=== PATIENT | female | born 1985 | race Hispanic/Latino ===

== ENCOUNTER 2018-10-07 17:39 | Emergency (ER) | payer SELFPAY ==
--- NOTE | 2018-10-07 18:27 | ER ---
Nurse's Notes [facility] Name: Rashmi Gutierres Age: 33 yrs Sex: Female : 1985 Arrival Date: 10/07/2018 Time: 17:40 Bed 11 Private MD: Diagnosis: Acute frontal sinusitis, unspecified Presentation: 10/07 17:42 Presenting complaint: Patient states: my sinuses seems congested really bad since hj yesterday; reports taking sinux meds but not helping; denies fever and chills; reports R ear pain;. Transition of care: patient was not received from another setting of care. Onset of symptoms was October 07, 2018. Risk Assessment: Do you want to hurt yourself or someone else? Patient reports no desire to harm self or others. Initial Sepsis Screen: Does the patient meet any 2 criteria? No. Patient's initial sepsis screen is negative. Does the patient have a suspected source of infection? No. Patient's initial sepsis screen is negative. Care prior to arrival: None. 17:42 Method Of Arrival: Ambulatory 17:42 Acuity: AVA 4 hj Historical: - Allergies: 17:44 No Known Allergies; hj - PMHx: 17:44 Hypothyroidism; hj - PSHx: 17:44 None; hj - Immunization history:: Adult Immunizations up to date. - Social history:: Smoking status: Patient/guardian denies using tobacco. - Ebola Screening: : No symptoms or risks identified at this time. Screenin:26 Abuse screen: Denies threats or abuse. Denies injuries from another. Nutritional sv screening: No deficits noted. Tuberculosis screening: No symptoms or risk factors identified. Fall Risk None identified. Assessment: 18:25 General: Appears in no apparent distress. uncomfortable, well groomed, well developed, sv Behavior is calm, cooperative, appropriate for age. Pain: Complains of pain in right cheek and left cheek Pain currently is 5 out of 10 on a pain scale. Pain: Pain began 1 day ago. Is continuous. Neuro: Level of Consciousness is awake, alert, obeys commands, Oriented to person, place, time, situation, Moves all extremities. Full function Gait is steady, Speech is normal. Respiratory: Reports sinus pain/congestion Airway is patent Respiratory effort is even, unlabored, Respiratory pattern is regular, symmetrical. EENT: Reports nasal congestion "I feel like it's dripping in the back of my throat.". Derm: Skin is normal. Vital Signs: 17:44 BP 139 / 88; Pulse 104; Resp 18; Temp 99.5(TE); Pulse Ox 97% on R/A; Weight 122.02 kg; hj Height 5 ft. 7 in. (170.18 cm); 17:44 Body Mass Index 42.13 (122.02 kg, 170.18 cm) ED Course: 17:40 Patient arrived in ED. as 17:43 Triage completed. hj 17:45 Arm band placed on right wrist. hj 18:18 Honorio Palumbo MD is Attending Physician. kdr 18:26 Patient has correct armband on for positive identification. Bed in low position. Call sv light in reach. Door closed. Head of bed elevated. 18:34 Leah Mead RN is Primary Nurse. sv 18:35 No provider procedures requiring assistance completed. Patient did not have IV access sv during this emergency room visit. Administered Medications: No medications were administered Outcome: 18:26 Discharge ordered by . kdr 18:35 Discharged to home ambulatory, with family. sv 18:35 Condition: stable 18:35 Discharge instructions given to patient, Instructed on discharge instructions, follow up and referral plans. medication usage, Demonstrated understanding of instructions, follow-up care, medications, Prescriptions given X 2. 18:36 Patient left the ED. sv Signatures: Leah Mead, COOPER RN Honorio Palumbo MD MD [facility] Brisa Jose Henry RN RN Corrections: (The following items were deleted from the chart) 17:45 17:44 Pulse Ox 100%; 122.02 kg; Height 5 ft. 7 in.; BMI: 42.1; hj hj 17:46 17:42 Presenting complaint: Patient states: my sinuses seems congested really bad since hj yesterday; reports taking sinux meds but not helping; denies fever and chills; hj 17:47 17:44 Pulse 104bpm; Resp 18bpm; Pulse Ox 97% RA; Temp 99.5F Temporal; 122.02 kg; Height hj 5 ft. 7 in.; BMI: 42.1; hj 17:47 17:44 Pulse 104bpm; Resp 18bpm; Pulse Ox 97% RA; Temp 99.5F Temporal; 122.02 kg; Height hj 5 ft. 7 in.; BMI: 42.1; hj
--- NOTE | 2018-10-07 18:27 | EDPHYS ---
Physician Documentation [facility] Name: Rashmi Gutierres Age: 33 yrs Sex: Female : 1985 Arrival Date: 10/07/2018 Time: 17:40 Bed 11 Private MD: ED Physician Honorio Palumbo HPI: 10/07 18:28 This 33 yrs old Female presents to ER via Ambulatory with complaints of Sinus kdr Congestion. 18:28 The patient or guardian reports Sinus congestion and post nasal drip. Onset: The kdr symptoms/episode began/occurred gradually, yesterday. Severity of symptoms: At their worst the symptoms were moderate, in the emergency department the symptoms are unchanged. Modifying factors: The symptoms are alleviated by nothing, the symptoms are aggravated by nothing. Associated signs and symptoms: Pertinent positives: rhinorrhea, sore throat, Pertinent negatives: chest pain, diarrhea, ear ache, fever, nausea, vomiting. The patient has experienced similar episodes in the past, multiple times, but today's symptoms are worse. The patient has not recently seen a physician. Historical: - Allergies: 17:44 No Known Allergies; hj - PMHx: 17:44 Hypothyroidism; hj - PSHx: 17:44 None; hj - Immunization history:: Adult Immunizations up to date. - Social history:: Smoking status: Patient/guardian denies using tobacco. - Ebola Screening: : No symptoms or risks identified at this time. ROS: 18:28 Constitutional: Negative for fever, chills, and weight loss, Eyes: Negative for injury, kdr pain, redness, and discharge, Neck: Negative for injury, pain, and swelling, Cardiovascular: Negative for chest pain, palpitations, and edema, Respiratory: Negative for shortness of breath, cough, wheezing, and pleuritic chest pain. 18:28 ENT: Positive for of the right cheek and left cheek, nasal discharge, sinus congestion, sinus pain. Exam: 18:28 Constitutional: This is a well developed, well nourished patient who is awake, alert, kdr and in no acute distress. Eyes: Pupils equal round and reactive to light, extra-ocular motions intact. Lids and lashes normal. Conjunctiva and sclera are non-icteric and not injected. Cornea within normal limits. Periorbital areas with no swelling, redness, or edema. Neck: Trachea midline, no thyromegaly or masses palpated, and no cervical lymphadenopathy. Supple, full range of motion without nuchal rigidity, or vertebral point tenderness. No Meningismus. Chest/axilla: Normal chest wall appearance and motion. Nontender with no deformity. No lesions are appreciated. 18:28 Head/face: Noted is Sinus tenderness, that is mild, is located over the right maxillary sinus and left maxillary sinus. Vital Signs: 17:44 BP 139 / 88; Pulse 104; Resp 18; Temp 99.5(TE); Pulse Ox 97% on R/A; Weight 122.02 kg; hj Height 5 ft. 7 in. (170.18 cm); 17:44 Body Mass Index 42.13 (122.02 kg, 170.18 cm) MDM: 18:26 Patient medically screened. kdr 18:28 Data reviewed: vital signs, nurses notes. Counseling: I had a detailed discussion with kdr the patient and/or guardian regarding: the historical points, exam findings, and any diagnostic results supporting the discharge/admit diagnosis, the need for outpatient follow up. Administered Medications: No medications were administered Disposition: 10/07/18 18:26 Discharged to Home. Impression: Acute frontal sinusitis, unspecified. - Condition is Stable. - Discharge Instructions: Sinusitis, Adult. - Prescriptions for Mucinex DM 30- 600 mg Oral tablet extended release 12 hr - take 1 tablet by ORAL route every 12 hours As needed; 20 tablet. Medrol (Tremaine) 4 mg Oral Tablets, Dose Pack - take 1 tablet by ORAL route as directed - follow package instructions; 1 packet. - Medication Reconciliation Form, Thank You Letter form. - Follow up: Private Physician; When: 2 - 3 days; Reason: If symptoms return, Further diagnostic work-up, Recheck today's complaints, Continuance of care, Re-evaluation by your physician. - Problem is an acute exacerbation. - Symptoms have improved. Signatures: Leah Mead RN RN Honorio Fraser MD MD kdr Joaquin, Henry, RN RN Corrections: (The following items were deleted from the chart) 18:36 18:26 10/07/2018 18:26 Discharged to Home. Impression: Acute frontal sinusitis, sv unspecified. Condition is Stable. Forms are Medication Reconciliation Form, Thank You Letter, Antibiotic Education, Prescription Opioid Use. Follow up: Private Physician; When: 2 - 3 days; Reason: If symptoms return, Further diagnostic work-up, Recheck today's complaints, Continuance of care, Re-evaluation by your physician. Problem is an acute exacerbation. Symptoms have improved. kdr
== END 2018-10-07 18:36 | disposition home or self-care (01) ==
LOC: ER 17:39
DX: J01.10 Acute frontal sinusitis, unspecified (principal); E03.9 Hypothyroidism, unspecified
CPT/HCPCS: 99282

== ENCOUNTER 2023-03-06 12:34 | Emergency (ER) | payer SELFPAY ==
--- OUTSIDE RECORDS SUMMARY | 2023-03-06 12:37 | XMS REPORT | Continuity of Care Document ---
:1985 Author Organization [facility] t Address [address] [facility] [address] [facility] [address] [place] [address] Care Team Providers Name Role Phone TOMÁS JACKSON Primary Care Physician Unavailable LEI GOMEZ Attending Clinician Unavailable Pgy2 Attending Clinician Unavailable Nubia Thomas MD Attending Clinician HEIDY MCGARRY Attending Clinician Unavailable HEIDY MCGARRY Attending Clinician Unavailable Pcp, Patient Does Not Have A Attending Clinician [phone] JENNIE TIMMONS Attending Clinician Unavailable Jennie Timmons MD Attending Clinician Only, Ang Db Test Attending Clinician Unavailable Farooq Del Toro MD Attending Clinician FAROOQ DEL TORO III Attending Clinician Unavailable RANGEL GALDAMEZ Attending Clinician Unavailable Rangel Galdamez MD Attending Clinician Doctor Unassigned, [place] Attending Clinician Unavailable JENNIE TIMMONS Admitting Clinician Unavailable Payers Payer Name Policy Type Policy Number Effective Date Expiration Date Ed whitley [id number] 2022 00:00:00 Problems Condition Condition Condition Status Onset Resolution Last Treating Co mments Source Name Details Category Date Date Treatment Clinician Date Right Right Disease Active Univers lower lower 5-07 ity of quadrant quadrant 00:00: [place] abdominal abdominal 00 Medi [place] pain pain Branch 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 ICD10 Diagnosis Term [employer] Hypothyroi Hypothyroi Disease Active U nivers d d 09-10 ity of 00:00: [address] Branch Allergies, Adverse Reactions, Alerts Allergy Allergy Status Severity Reaction(s) Onset Inactive Treating Comm ents Source Name Type Date Date Clinician NO KNOWN Drug Active [facility] ALLERGIE Class ity of [facility] [place] [place] Social History Social Habit Start Date Stop Date Quantity Comments Source Alcohol intake 2022-12-10 2022-12-10 Current [place] of 00:00:00 00:00:00 non-drinker of [facility] alcohol Branch (finding) Exposure to 2022-11-28 2022-12-08 Not sure [facility] SARS-CoV-2 00:00:00 11:30:00 [facility] (event) Branch Sex Ass[birth year] At [birth year] Universit y of 00:00:00 00:00:00 [facility] Smoking Status Start Date Stop Date Source Never smoked tobacco [facility] Medications Ordered Filled Start Stop Current Ordering Indication Dosage Frequency Signature Comments Components Source Medication Medication Date Date Medication? Clinician (SIG) Name Name iopamidol 2022- No [id number] 100mL 100 mL, Univers (ISOVUE 11-08 Intravenou ity o f 370-500 mL) 23:30: 00:22 s, ONCE, 1 [place] injection 00 :00 dose, On Medica l 100 mL [place] 11/08/22 Branch at 1830, Routine NaCl 0.9% 2022- No 1000mL at 999 Uni vers (NS) bolus 11-08 mL/hr, ity of infusion 22:45: 02:00 1,000 mL, [place] as 1,000 mL 00 :00 IV Medical Infusion, Branch ONCE, 1 dose, On 11/08/22 at 1745, STAT maalox:diph 2022- No 15mL 15 mL, Uni vers enhydrAMINE 11-08 Oral, ity of :lidocaine 22:45: 23:59 ONCE, 1 [place] as 2 % viscous 00 :00 dose, On Medi venessa 1:1:1 11/08/22 Branch (FIRST-MOUT at 1745, [facility]) Routine oral suspension 15 mL Nitrofurant No [id number] 100mg Take 1 Univers oin&Nit. 11-0815 capsule by ity of [place] 00:00: 04:59 mouth in [place] 100 mg 00 :00 the Medical capsule morning Branch and 1 capsule in the evening. Do all this for 7 days. acetaminoph 2022- No [id number] 1{tbl} Take 1 U nivers en-codeine 11-08 tablet by ity of (TYLENOL-CO 00:00: 04:59 [place] DEINE #3) 00 :00 every 6 Medical 300-30 mg (six) Branch tablet hours as needed for Pain (scale 4-6) for up to 5 days. Indication s: acute pain ondansetron No [id number] 4mg Take 1 Univers 4 mg 11-08 tablet by ity of disintegrat 00:00: 04:59 [place] ing tablet 00 :00 every 8 Medica l (eight) Branch hours as needed for Nausea and Vomiting (N/V) for up to 5 days. atorvastati 2020-07 Yes 20mg Take 20 mg Univers n (LIPITOR) 1-24 by mouth ity of 20 mg 14:48: at [place] tablet 01 bedtime. Medical Branch ergocalcife 2020-07 Yes [id number] Take Uni vers rol, 1-24 50,000 mg ity of vitamin D2, 14:48: by mouth [place] (VITAMIN D 01 weekly. Medica l ORAL) Branch metFORMIN 2020-07 Yes 500mg Take 500 Uni vers 500 mg 24 1-24 mg by ity of hr tablet 14:48: mouth 2 [place] 01 (two) Medical times Branch daily with meals. levothyroxi 2020-07 Yes 125ug Take 125 U nivers ne 1-24 mcg by ity of (UNITHROID) 14:48: mouth [place] 125 mcg 01 every Medical tablet morning. Branch atorvastati 2020-07 Yes 20mg Take 20 mg Univers n (LIPITOR) 1-24 by mouth ity of 20 mg 14:48: at [place] tablet 01 bedtime. Medical Branch ergocalcife 2020-07 Yes [id number] Take Uni vers rol, 1-24 50,000 mg ity of vitamin D2, 14:48: by mouth [place] (VITAMIN D weekly. Medica l ORAL) Branch metFORMIN 2020-07 Yes 500mg Take 500 Uni vers 500 mg 24 1-24 mg by ity of hr tablet 14:48: mouth 2 (two) Medical times Branch daily with meals. levothyroxi 2020-07 Yes 125ug Take 125 U nivers ne 1-24 mcg by ity of (UNITHROID) 14:48: mouth [place] 125 mcg 01 every Medical tablet morning. Branch atorvastati 2020-07 Yes 20mg Take 20 mg Univers n (LIPITOR) 1-24 by mouth ity of 20 mg 14:48: at [place] tablet 01 bedtime. Medical Branch ergocalcife 2020-07 Yes [id number] Take Uni vers rol, 1-24 50,000 mg ity of vitamin D2, 14:48: by mouth [place] (VITAMIN D weekly. Medica l ORAL) Branch metFORMIN 2020-07 Yes 500mg Take 500 Uni vers 500 mg 24 1-24 mg by ity of hr tablet 14:48: mouth (two) Medical times Branch daily with meals. levothyroxi 2020-07 Yes 125ug Take 125 U nivers ne 1-24 mcg by ity of (UNITHROID) 14:48: mouth [place] 125 mcg 01 every Medical tablet morning. Branch atorvastati 2020-07 Yes 20mg Take 20 mg Univers n (LIPITOR) 1-24 by mouth ity of 20 mg 14:48: at [place] tablet 01 bedtime. Medical Branch ergocalcife 2020-07 Yes [id number] Take Uni vers rol, 1-24 50,000 mg ity of vitamin D2, 14:48: by mouth [place] (VITAMIN D weekly. Medica l ORAL) Branch metFORMIN 2020-07 Yes 500mg Take 500 Uni vers 500 mg 24 1-24 mg by ity of hr tablet 14:48: mouth 2 (two) Medical times Branch daily with meals. levothyroxi 2020-07 Yes 125ug Take 125 U nivers ne 1-24 mcg by ity of (UNITHROID) 14:48: mouth [place] 125 mcg 01 every Medical tablet morning. Branch atorvastati 2020-07 Yes 20mg Take 20 mg Univers n (LIPITOR) 1-24 by mouth ity of 20 mg 14:48: at [place] tablet 01 bedtime. Medical Branch ergocalcife 2020-07 Yes [id number] Take Uni vers rol, 1-24 50,000 mg ity of vitamin D2, 14:48: by mouth [place] (VITAMIN D weekly. Medica l ORAL) Branch metFORMIN 2020-07 Yes 500mg Take 500 Uni vers 500 mg 24 1-24 mg by ity of hr tablet 14:48: mouth 2 (two) Medical times Branch daily with meals. levothyroxi 2020-07 Yes 125ug Take 125 U nivers ne 1-24 mcg by ity of (UNITHROID) 14:48: mouth [place] 125 mcg 01 every Medical tablet morning. Branch atorvastati 2020-07 Yes 20mg Take 20 mg Univers n (LIPITOR) 1-24 by mouth ity of 20 mg 14:48: at [place] tablet 01 bedtime. Medical Branch ergocalcife 2020-07 Yes [id number] Take Uni vers rol, 1-24 50,000 mg ity of vitamin D2, 14:48: by mouth [place] (VITAMIN D weekly. Medica l ORAL) Branch metFORMIN 2020-07 Yes 500mg Take 500 Uni vers 500 mg 24 1-24 mg by ity of hr tablet 14:48: mouth 2 (two) Medical times Branch daily with meals. levothyroxi 2020-07 Yes 125ug Take 125 U nivers ne 1-24 mcg by ity of (UNITHROID) 14:48: mouth [place] 125 mcg 01 every Medical tablet morning. Branch atorvastati 2020-07 Yes 20mg Take 20 mg Univers n (LIPITOR) 1-24 by mouth ity of 20 mg 14:48: at [place] tablet 01 bedtime. Medical Branch ergocalcife 2020-07 Yes [id number] Take Uni vers rol, 1-24 50,000 mg ity of vitamin D2, 14:48: by mouth [place] (VITAMIN D weekly. Medica l ORAL) Branch metFORMIN 2020-07 Yes 500mg Take 500 Uni vers 500 mg 24 1-24 mg by ity of hr tablet 14:48: mouth 2 [place] 01 (two) Medical times Branch daily with meals. levothyroxi 2020-07 Yes 125ug Take 125 U nivers ne 1-24 mcg by ity of (UNITHROID) 14:48: mouth [place] 125 mcg 01 every Medical tablet morning. Branch levothyroxi 2020-07- No 100ug Take 100 Univers ne 1-24 11-24 mcg by ity of (SYNTHROID) 14:46: 00:00 [place] 100 mcg 12 :00 every Medical tablet morning. Branch Immunizations Ordered Filled Immunization Date Status Comments [facility] e Immunization Name Name TDAP 2013-04-26 Completed University of 00:00:00 [facility] TDAP 2013-04-26 Completed University of 00:00:00 [facility] TDAP 2013-04-26 Completed University of 00:00:00 [facility] TDAP 2013-04-26 Completed University of 00:00:00 [facility] TDAP 2013-04-26 Completed University of 00:00:00 [facility] TDAP 2013-04-26 Completed University of 00:00:00 [facility] TDAP 2013-04-26 Completed University of 00:00:00 [facility] Rubella 2007-04-12 Completed University of 00:00:00 [facility] Rubella 2007-04-12 Completed University of 00:00:00 [facility] Rubella 2007-04-12 Completed University of 00:00:00 [facility] Rubella 2007-04-12 Completed University of 00:00:00 [facility] Rubella 2007-04-12 Completed University of 00:00:00 [facility] Rubella 2007-04-12 Completed University of 00:00:00 [facility] Rubella 2007-04-12 Completed University of 00:00:00 [facility] TD, NOS 2003-02-24 Completed University of 00:00:00 [facility] TD, NOS 2003-02-24 Completed University of 00:00:00 [facility] Branch TD, NOS 2003-02-24 Completed University of 00:00:00 [facility] Branch TD, NOS 2003-02-24 Completed University of 00:00:00 [facility] Branch TD, NOS 2003-02-24 Completed University of 00:00:00 [facility] Td 2003-02-24 Completed University of 00:00:00 [facility] Td 2003-02-24 Completed University of 00:00:00 [facility] Vital Signs Vital Name Observation Time Observation Value Comments Source Systolic blood 2022-12-10 14:20:00 142 mm[Hg] Univer sity of pressure [facility] Diastolic blood 2022-12-10 14:20:00 97 mm[Hg] Unive rsity of pressure [facility] Heart rate 2022-12-10 14:20:00 77 /min Universi ty of [facility] Body temperature 2022-12-10 14:20:[address] [place] Univ ersity of [facility] Branch Respiratory rate 2022-12-10 14:20:00 20 /min Univ ersity of [facility] Body height 2022-12-10 14:20:00 170.2 cm Universi ty of [place] [facility] [place] Body weight 2022-12-10 14:20:00 126.599 kg [facility]i ty [facility] [place] [facility] [place] BMI 2022-12-10 14:20:00 43.71 kg/m2 Universi ty of [facility] Systolic blood 2022-11-09 04:00:00 144 mm[Hg] Univer sity of pressure [facility] Diastolic blood 2022-11-09 04:00:00 106 mm[Hg] Unive rsity of pressure [facility] Heart rate 2022-11-09 04:00:00 75 /min Universi ty of [facility] Respiratory rate 2022-11-09 04:00:00 18 /min [facility] Oxygen saturation in 2022-11-09 04:00:00 98 /min [facility] Arterial blood by [facility] Pulse oximetry Branch Body temperature 2022-11-08 22:08:[address] [place] Univ ersity of [facility] Body height 2022-11-08 22:08:00 170.2 cm Universi ty [facility] [place] [facility] [place] Body weight 2022-11-08 22:08:00 122.471 kg [facility] [place] [facility] BMI 2022-11-08 22:08:00 42.29 kg/m2 Universi ty of [facility] Systolic blood 2021-05-28 20:52:00 133 mm[Hg] Univer sity of pressure [place] [facility] Diastolic blood 2021-05-28 20:52:00 90 mm[Hg] [facility] Heart rate 2021-05-28 20:52:00 99 /min [facility] Respiratory rate 2021-05-28 20:50:00 22 /min [facility] Body height 2021-05-28 20:50:00 170.2 cm [facility] Body weight 2021-05-28 20:50:00 122.653 kg [facility] BMI 2021-05-28 20:50:00 42.35 kg/m2 [facility] Oxygen saturation in 2021-05-28 20:50:00 93 /min [facility] Arterial blood by [facility] Pulse oximetry Branch Procedures Procedure Date / Time Performing Clinician Source Performed CARCINOEMBRYONIC ANTIGEN 2022-12-10 15:21:00 Mishel Montes De Oca [facility] CA-125 2022-12-10 15:21:00 Mishel Montes De Oca [place] o f [facility] US OVARY TORSION 2022-11-09 03:21:38 Jennie Timmons [facility] CT ABDOMEN PELVIS W 2022-11-09 00:19:44 Jennie Timmons [facility] CONTRAST [facility] LIPASE 2022-11-08 23:55:00 Jennie Timmons [facility] COMP. METABOLIC PANEL 2022-11-08 23:55:00 Jennie Timmons [facility] ([id number]) [facility] CBC WITH DIFF 2022-11-08 23:55:00 Jennie Timmons [facility] URINALYSIS 2022-11-08 23:55:00 Jennie Timmons [facility] POCT TEST 2022-11-08 23:55:00 Jennie Timmons [facility] CONSENT/REFUSAL FOR 2022-11-08 22:02:23 Doctor Unassigned, [facility] DIAGNOSIS AND TREATMENT [place] [facility] [place] Encounters Start End Encounter Admission Attending Care Care Encounter Source Date/Time Date/Time Type Type Clinicians Facility Department ID 2023-02-11 2023-02-11 Outpatient SFA [facility] [id number] [place] 16:07:11 16:07:11 0810 [place] 2022-12-29 2022-12-29 Outpatient [facility] [id number] Jos[place] 17:37:41 17:37:41 [id number] [place] 2022-12-24 2022-12-24 Outpatient [facility] [id number] Jos[place] 13:58:32 13:58:32 0622 [place] 2022-12-10 2022-12-10 [facility] [id number] Univers 10:00:00 10:25:00 [facility] 2022-12-10 2022-12-10 Out[facility] [id number] Univers 10:00:00 10:00:00 [facility] 2022-12-10 2022-12-10 Office Pgy2 UNIVERSIT [id number] Univers 09:30:00 09:49:12 Visit Nubia Thomas Y HEALTH 350.1.13.10 ity of [facility] 4.2.7.2.686 [place] [phone] [address] 2022-11-12 2022-11-12 Outpatient R HEIDY MCGARRY [facility] U TMB [id number] Univers 14:15:00 14:15:00 HEIDY MCGARRY [facility] 2022-11-11 2022-11-11 Telephone Pcp, UNIVERSIT [id number] Univers 00:00:00 00:00:00 Patient Y HEALTH 350.1.13.10 i ty of Does Not CLINICS 4.2.7.2.686 [place] as Have A [id number] [address] 2022-11-08 2022-11-08 Emergency X SHANELLE [facility] ERT [id number] Univers 17:10:00 23:24:00 [facility]22-[facility]08 2022-11-08 [facility] [id number] Univers 17:10:00 23:24:00 Jennie A [place] 350.1.13.10 [facility] 4.2.7.2.686 [place] [phone] Medi venessa 084 Branch 2022-11-04 2022-11-04 Outpatient [facility] [id number] Jos[place] 10:39:22 10:39:22 0503 [place] 2022-08-08 2022-08-08 Outpatient [facility] [id number] Jos[place] 10:16:44 10:16:44 0204 [place] 2022-04-03 2022-04-03 Outpatient [facility] [id number] Joselo 11:11:22 11:11:22 0930 [place] 2021-07-09 2021-07-09 Laboratory Only, Ang Db Test [facility] 1.2.8 [id number] Univers 14:30:00 14:45:00 Only Farooq Del Toro 350.1.13.10 ity of [place] 4.2.7.2.686 [place] as JASON?BLEA [phone] Wy dicmayte [address] MEDICAL OFFICE BUILDING 2021-07-09 2021-07-09 Outpatient R III, [facility] [id number] Univers 14:30:00 14:30:00 FAROOQ ity [facility] 2021-05-28 2021-05-28 Outpatient [facility] [id number] Univers 14:40:00 15:03:10 RANGEL canela o [facility] 2021-05-28 2021-05-28 [facility] [id number] Univers 14:28:00 15:03:10 Visit Rangel JOHNSON 350.1.13.10 ity of [place] 4[place]2.7.2.686 [place] [facility] [id number] Wy dical SAKINA 059 Branch BUILDING 2021-05-28 2021-05-28 Orders Doctor MARY [id number] Univers 00:00:00 00:00:00 Only Unassigned, MARLENA 350.1.13.10 ity of [place] [facility] 4.2.7.2.686 Carl as [id number] [facility] venessa [address] [place] Results Test Description Test Time Test Comments Results Result Comments Source VAGINAL PATHOGENS DNA PANEL 2023-02-12 15:33:06 Test Item Value Reference Range Interpretation Comme nts JOSIE SPECIES (test code POSITIVE NEGATIVE A = ) G. VAGINALIS (test code = NEGATIVE NEGATIVE ) T. VAGINALIS (test code = NEGATIVE NEGATIVE N ote: The BD Affirm VPIII Microbial ) Identification Testis a DNA probe test intended for us e in the detectionand identification of Josie species, Gardnerellavagi nalis and Trichomonas vaginalis nucle ic acid. UNLESS OTHERWISE INDIC ATED, ALL TESTING PERFORMED AT [facility] PATHOLOGY [facility]. [address] [place] [address] [phone] CAUL FAT PULLER: Finn SADLERIA NUMBER [id number] [place]. [id number] TSH, THIRD [id number] 06:44:18 Test Item Value Reference Range Interpretation Comments TSH, THIRD GENERATION (test 10.200 UIU/ML 0.400-4.100 H code = 2821) FREE T4 (THYROXINE)2022-12-25 06:44:18 Test Item Value Reference Range Interpretation Comments FREE T4 (THYROXINE) (test code = 0.99 NG/DL 0.80-1.90 1743) HEMOGLOBIN [id number] 03:24:33 Test Item Value Reference Range Interpretation Comments HEMOGLOBIN A1c (test 7.0 % 4.2-5.6 H AMERIC AN DIABETES code = 08247) ASSOCIATION IDELINES FOR HGB A1C: PREDIABETES/INC REASED RISK . . . . . . . 5.7 -6.4% DIAGNOSIS OF DI ABETES . . . . . . . . . >=6 .5% WITH CONFIRMATION OR APPROPRIATE SYMPTOMS NOTE: ASSAY MAY BE AFFECTED BY HEMOGLOBINOPATH IES (SICKLE CELL ANEMIA, S- C DISEASE, OTHERS) OR NICOLÁS FICIALLY LOWERED BY DECR EASED RED CELL SURVIVAL ( HEMOLYTIC ANEMIAS, BLOOD LOSS, ETC.). CONSIDER ALTERN ATE TESTING OR LABORATORY C ONSULTATION. UNLESS OTHERWIS E INDICATED, ALL TESTING PER FORMED AT CLINICAL PATHOL OGY [facility]. [address] [place] [address] [phone] LABORATORY DIRE CTOR: Finn SADLERIA NUMBER [id number] CAP ACCREDITATION N O. [id number] COMP. METABOLIC PANEL (36466)2022-11-09 01:05:46 Test Item Value Reference Range Interpretation Comments NA (test code = 136 mmol/L 135-145 6145699992) K (test code = 3.9 mmol/L 3.5-5.0 0808662804) CL (test code = 103 mmol/L 98-108 6154734425) CO2 TOTAL (test code = 23 mmol/L 23-31 0244089079) AGAP (test code = 10 2-16 8679962207) BUN (test code = 8 mg/dL 7-23 7167646393) GLUCOSE (test code = 101 mg/dL 70-110 6419188526) CREATININE (test code = 0.48 mg/dL 0.50-1.04 L 6866309595) TOTAL BILI (test code = 0.8 mg/dL 0.1-1.7 8069134989) CALCIUM (test code = 9.1 mg/dL 8.6-10.6 5330518194) T PROTEIN (test code = 7.9 g/dL 6.3-8.2 6797179462) ALBUMIN (test code = 4.5 g/dL 3.5-5.0 3875736363) ALK PHOS (test code = 87 U/L 34-122 7271496120) ALTv (test code = 80 U/L 5-35 H 1742-6) AST(SGOT) (test code = 77 U/L 13-40 H 4899646607) eGFR (test code = 144.7 mL/min/1.73m2 7207060717) ANTOINE (test code = ANTOINE) Association of Glomerular Filtration Rate (GFR) and Staging of Kidney Disease* + --+ --+ ------+| GFR (mL/min/1.73 m2) ?| With Kidney Damage ?| ?Without Kidney Damage+ --------+ --------+ +| ?>90 ?| ?Stage one ?| ? Normal ?+ ---+ ---+ -------+| ?60-89 ?| ?Stage two ?| ? Decreased GFR ? + --+ --+ ------+| ?30-59 ?| ?Stage three ?| ? Stage three ? + --+ --+ ------+| ?15-29 ?| ?Stage four ? | ? Stage four ?+ ---+ ---+ -------+| ?<15 (or dialysis) ? ?| ?Stage five ? | ? Stage five ?+ ---+ ---+ -------+ *Each stage assumes the associated GFR level has been in effect for at least three months. ?Stages 1 to 5, with or without kidney disease, indicate chronic kidney disease. Notes: Determination of stages one and two (with eGFR >59mL/min/1.73 m2) requires estimation of kidney damage for at least three months as defined by structural or functional abnormalities of the kidney, manifested by either:Pathological abnormalities or Markers of kidney damage (including abnormalities in the composition of the blood or urine or abnormalities in imaging tests). Lab Interpretation Abnormal (test code = 06724-3) [facility] Test Item Value Reference Range Interpretation Comments LIPASE (test code = 7275999041) 127 U/L 0-220 Lab Interpretation (test code = Normal 36319-2) [facility] WITH [id number] 01:00:47 Test Item Value Reference Range Interpretation Comments WBC (test code = 9.53 See_Comment [Automated 3690-2) message] The sy stem which generated this result transmitted reference range : 4.30 - 11.10 10*3/?L. The reference range was not used to interpret this result as normal/abnormal . RBC (test code = 4.47 See_Comment [Automated 959-8) message] The sy stem which generated this result transmitted reference range : 3.93 - 5.25 10*6/?L. The reference range was not used to interpret this result as normal/abnormal . HGB (test code = 13.3 g/dL 11.6-15.0 718-7) HCT (test code = 37.8 % 35.7-45.2 4544-3) MCV (test code = 84.6 fL 80.6-95.5 787-2) MCH (test code = 29.8 pg 25.9-32.8 785-6) MCHC (test code = 35.2 g/dL 31.6-35.1 H 786-4) RDW-SD (test code = 41.7 fL 39.0-49.9 14649-2) RDW-CV (test code = 13.6 % 12.0-15.5 788-0) PLT (test code = 305 See_Comment [Automated 777-3) message] The sy stem which generated this result transmitted reference range : 166 - 358 10*3/ ?L. The reference r denise was not used to interpret this result as normal/abnormal . MPV (test code = 10.2 fL 9.5-12.9 02784-8) NRBC/100 WBC (test 0.0 See_Comment [Automat ed code = [id number]) message] The system which generated this result transmitted reference range : 0.0 - 10.0 /100 WBCs. The refer ence range was not u sed to interpret th is result as normal/abnormal . NRBC x10^3 (test code See_Comment [Auto mated = 8175612840) message] The s ystem which generated this result transmitted reference range : 10*3/?L. The reference range was not used to interpret this result as normal/abnormal . GRAN MAT (NEUT) % 68.5 % (test code = 770-8) IMM GRAN % (test code 0.70 % = 2564847878) LYMPH % (test code = 20.3 % 736-9) MONO % (test code = 7.0 % 5905-5) EOS % (test code = 3.0 % 713-8) BASO % (test code = 0.5 % 706-2) GRAN MAT x10^3(ANC) 6.52 10*3/uL 1.88-7.09 (test code = 7185351356) IMM GRAN x10^3 (test 0.07 10*3/uL 0.00-0.06 H code = 3694756892) LYMPH x10^3 (test code 1.93 10*3/uL 1.32-3.29 = 731-0) MONO x10^3 (test code 0.67 10*3/uL 0.33-0.92 = 742-7) EOS x10^3 (test code = 0.29 10*3/uL 0.03-0.39 711-2) BASO x10^3 (test code 0.05 10*3/uL 0.01-0.07 = 704-7) Lab Interpretation Abnormal (test code = 84339-0) [facility] [id number] 23:55:00 Test Item Value Reference Range Interpretation Comments POCT PREG (test code = 1605) negative On board controls acceptable with present C Line (test code = 3574) POCT PREG LOT # (test code = 3575) [id number] POCT PREG TEST DATE (test 08/04/2023 code = 3576) Lab Interpretation (test code = Normal 87469-4) [facility] [id number] 06:14:26 Test Item Value Reference Range Interpretation Comments GLUCOSE (test code = 110 MG/DL 70-99 H 2216) BUN (test code = 8 MG/DL 6-20 2207) CREATININE (test 0.63 MG/DL 0.60-1.30 code = 221) eGFR (2020 CKD-EPI) 116 >60 (test code = 26409) ML/MIN/1.73 CALC BUN/CREAT (test 13 RATIO 6-28 code = 2235) SODIUM (test code = 140 MEQ/L 556-539 1357) POTASSIUM (test code 4.2 MEQ/L 3.5-5.4 = 2227) CHLORIDE (test code 105 MEQ/L 95-107 = 2214) CARBON DIOXIDE (test 17 MEQ/L 19-31 L code = 2206) CALCIUM (test code = 9.4 MG/DL 8.5-10.5 2208) PROTEIN, TOTAL (test 7.3 G/DL 6.1-8.3 code = 2229) ALBUMIN (test code = 4.3 G/DL 3.5-5.2 2200) CALC GLOBULIN (test 3.0 G/DL 1.9-3.7 code = 2240) CALC A/G RATIO (test 1.4 RATIO 1.0-2.6 code = 2234) BILIRUBIN, TOTAL 0.5 MG/DL See_Comment [Automated message] (test code = 2207) The syste m which generated this result transmit milad reference range : <=1.2. The refe rence range was not u sed to interpret th is result as normal/abnormal . ALKALINE PHOSPHATASE 86 U/L 40-112 (test code = 2204) AST (test code = 50 U/L 9-40 H 2217) ALT (test code = 53 U/L 5-40 H 2218) LIPID [id number] 06:14:26 Test Item Value Reference Range Interpretation Comments CHOLESTEROL (test 201 MG/DL <200 H code = 2210) TRIGLYCERIDES (test 117 MG/DL <150 code = 2232) HDL CHOLESTEROL (test 46 MG/DL >39 code = 2220) CALC LDL CHOL (test 133 MG/DL <100 H NOTE: C ALCULATED LDL code = 2237) IS BASED ON DEBO-DIANA METHOD WHICHINCLUDES ADJUSTABLE TRIGLYCERIDE:VL DL CHOLESTEROL RAT IO.THIS FACTOR VARIES B Y MEASURED TRIGLY CERIDE AND NON-HDLCHOL ESTEROL CONCENTRATIONS WITH INCREASED CALCU LATED LDL SEENIN HIGH ER TRIGLYCERIDE OR LOWER NON-HDL SPECIME NS. FOR MOREINFORMATION , SEE CLIENT ANNOUNCE MENT AT [email or web address] [email or web address] RATIO LDL/HDL 2.89 RATIO <3.22 (test code = 2238) TSH REFLEX TO FREE [id number] 02:37:33 Test Item Value Reference Range Interpretation Comments TSH REFLEX TO FREE 2.580 UIU/ML 0.400-4.100 [facility] has important T4 (test code = pathology st aff 2834) changes effecti ve 09/02/2022. New pathology staff will provide uninter rupted, excellent patie nt care and clinical consultation. S ee URL: [email or web address] UNLES S OTHERWISE INDIC ATED, ALL TESTING PER FORMED AT [facility] [place] [facility]. [address], [place] CLIA: [id number], CAP: [id number] HEMOGLOBIN [id number] 02:52:20 Test Item Value Reference Range Interpretation Comments HEMOGLOBIN A1c (test 6.5 % 4.2-5.6 H AMERIC AN DIABETES code = 17168) ASSOCIATION IDELINES FOR HGB A1C: PREDIABETES/INC REASED RISK . . . . . . . 5.7 -6.4% DIAGNOSIS OF DI ABETES . . . . . . . . . >=6 .5% WITH CONFIRMATION OR APPROPRIATE SYMPTOMS NOTE: ASSAY MAY BE AFFECTED BY HEMOGLOBINOPATH IES (SICKLE CELL ANEMIA, S- C DISEASE, OTHERS) OR NICOLÁS FICIALLY LOWERED BY DECR EASED RED CELL SURVIVAL ( HEMOLYTIC ANEMIAS, BLOOD LOSS, ETC.). CONSIDER ALTERN ATE TESTING OR LABORATORY C ONSULTATION. HEMOGLOBIN [id number] 05:30:41 Test Item Value Reference Range Interpretation Comments HEMOGLOBIN A1c (test code = 40015) 6.0 % 4.2-5.6 H VITAMIN D, 25 [id number] 04:30:04 Test Item Value Reference Range Interpretation Comments VITAMIN D, 25 OH 26 NG/ML SEE BELOW L NOTE: 25-H YDROXYVITAMIN D (test code = 4958) ASSAY INC LUDES 25-HYDROXYVITAM IN D2 AND D3. METHODOLOGY IS CHEMILUMINESCEN T IMMUNOASSAY. INTERPRETIVE RA NGES PEDIATRIC (<17 YEARS) . . . . . . . . . . . NG/ML 20-100ADULT: IN SUFFICIENT . . . . . . . . . . . . . . NG/ML <20 SUBOP TIMAL . . . . . . . . . . . . . . . NG/ML 20-29 OPT IMAL . . . . . . . . . . . . . . . . . NG/ML 30-100 UN LESS OTHERWISE INDIC ATED, ALL TESTING PERFORM ED ATCLINICAL PATH [facility]. [address] [place] [address] LABORATORY DIRE CTOR: Benjamin AHUMADA. CLIA NUMBER [id number] CAP ACCREDITATION N O. [id number] LIPID [id number] 04:16:43 Test Item Value Reference Range Interpretation Comments CHOLESTEROL (test 185 MG/DL <200 code = 2210) TRIGLYCERIDES (test 157 MG/DL <150 H code = 2232) HDL CHOLESTEROL (test 45 MG/DL >39 code = 2220) CALC LDL CHOL (test 113 MG/DL <100 H NOTE: C ALCULATED LDL code = 2237) IS BASED ON DEBO-DIANA METHOD WHICHINCLUDES ADJUSTABLE TRIGLYCERIDE:VL DL CHOLESTEROL RAT IO.THIS FACTOR VARIES B Y MEASURED TRIGLY CERIDE AND NON-HDLCHOL ESTEROL CONCENTRATIONS WITH INCREASED CALCU LATED LDL SEENIN HIGH ER TRIGLYCERIDE OR LOWER NON-HDL SPECIME NS. FOR MOREINFORMATION , SEE CLIENT ANNOUNCE MENT AT [email or web address] RATIO LDL/HDL 2.51 RATIO <3.22 (test code = 2238) COMPREHENSIVE METABOLIC [id number] 04:16:43 Test Item Value Reference Range Interpretation Comments GLUCOSE (test code = 98 MG/DL 70-99 2216) BUN (test code = 9 MG/DL 6-20 2207) CREATININE (test 0.62 MG/DL 0.60-1.30 code = 2214) eGFR (2020 CKD-EPI) 118 >60 (test code = 75525) ML/MIN/1.73 CALC BUN/CREAT (test 15 RATIO 6-28 code = 2235) SODIUM (test code = 141 MEQ/L 278-173 5669) POTASSIUM (test code 4.1 MEQ/L 3.5-5.4 = 2227) CHLORIDE (test code 104 MEQ/L 95-107 = 2214) CARBON DIOXIDE (test 23 MEQ/L 19-31 code = 220) CALCIUM (test code = 9.4 MG/DL 8.5-10.5 2208) PROTEIN, TOTAL (test 7.8 G/DL 6.1-8.3 code = 222) ALBUMIN (test code = 4.4 G/DL 3.5-5.2 2200) CALC GLOBULIN (test 3.4 G/DL 1.9-3.7 code = 2240) CALC A/G RATIO (test 1.3 RATIO 1.0-2.6 code = 2234) BILIRUBIN, TOTAL 0.5 MG/DL See_Comment [Automated message] (test code = 2207) The syste m which generated this result transmit milad reference range : <=1.2. The refe rence range was not u sed to interpret th is result as normal/abnormal . ALKALINE PHOSPHATASE 75 U/L 40-112 (test code = 2204) AST (test code = 71 U/L 9-40 H 2217) ALT (test code = 82 U/L 5-40 H 2218) TSH, THIRD [id number] 03:55:19 Test Item Value Reference Range Interpretation Comments TSH, THIRD GENERATION (test code 2.880 UIU/ML 0.400-4.100 = 2821) VITAMIN D, 25 [id number] 03:49:06 Test Item Value Reference Range Interpretation Comments VITAMIN D, 25 OH 37 NG/ML SEE BELOW NOTE: 25-H YDROXYVITAMIN D (test code = 4958) ASSAY INC LUDES 25-HYDROXYVITAM IN D2 AND D3. METHODOLOGY IS CHEMILUMINESCEN T IMMUNOASSAY. INTERPRETIVE RA NGES PEDIATRIC (<17 YEARS) . . . . . . . . . . . NG/ML 20-100ADULT: IN SUFFICIENT . . . . . . . . . . . . . . NG/ML <20 SUBOP TIMAL . . . . . . . . . . . . . . . NG/ML 20-29 OPT IMAL . . . . . . . . . . . . . . . . . NG/ML 30-100 COMPREHENSIVE METABOLIC [id number] 02:45:51 Test Item Value Reference Range Interpretation Comments GLUCOSE (test code = 105 MG/DL 70-99 H 2216) BUN (test code = 10 MG/DL 6-20 2207) CREATININE (test 0.60 MG/DL 0.60-1.30 code = 2214) eGFR (2020 CKD-EPI) 118 >60 (test code = 32641) ML/MIN/1.73 CALC BUN/CREAT (test 17 RATIO 6-28 code = 2235) SODIUM (test code = 140 MEQ/L 282-966 2409) POTASSIUM (test code 4.3 MEQ/L 3.5-5.4 = 8) CHLORIDE (test code 102 MEQ/L 95-107 = 2215) CARBON DIOXIDE (test 19 MEQ/L 19-31 code = 2206) CALCIUM (test code = 9.4 MG/DL 8.5-10.5 2208) PROTEIN, TOTAL (test 7.7 G/DL 6.1-8.3 code = 2229) ALBUMIN (test code = 4.5 G/DL 3.5-5.2 2200) CALC GLOBULIN (test 3.2 G/DL 1.9-3.7 code = 2240) CALC A/G RATIO (test 1.4 RATIO 1.0-2.6 code = 2234) BILIRUBIN, TOTAL 0.3 MG/DL See_Comment [Automated message] (test code = 2207) The syste m which generated this result transmitted ref erence range: <=1.2. T he reference range was not used to int erpret this result as normal/abnormal . ALKALINE PHOSPHATASE 89 U/L 40-112 (test code = 2204) AST (test code = 77 U/L 9-40 H 2218) ALT (test code = 99 U/L 5-40 H UNLESS OTH ERWISE 2219) INDICATED, ALL TESTING PERFORM ED ATCLINICAL PATH [facility], [facility]. [address] [place] [address] [facility] DIRECTOR: CLAY NEWBERRY M.D. CLIA NUMBER [id number] [facility] ACCREDITATION N O. [id number] HEMOGLOBIN [id number] 03:51:30 Test Item Value Reference Range Interpretation Comments HEMOGLOBIN A1c (test code = 48134) 6.3 % 4.2-5.6 H"
--- NOTE | 2023-03-06 13:15 | ER ---
Nurse's Notes [facility] Name: Rashmi Gutierres Age: 37 yrs Sex: Female : 1985 Arrival Date: 03/06/2023 Time: 12:34 Bed 10 Private MD: Diagnosis: Other viral infections of unspecified site;Nasal congestion;Acute upper respiratory infection, unspecified;Dizziness and giddiness Presentation: 03/06 12:49 Chief complaint: Patient states: "Last Wednesday, I started having runny nose, fever, mb9 chills, and bilateral ear pain. Wednesday, my ears made me have dizzy spells and sound was muffled". Coronavirus screen: Vaccine status: Patient reports receiving the 2nd dose of the covid vaccine. Ebola Screen: No symptoms or risks identified at this time. Initial Sepsis Screen: Does the patient meet any 2 criteria? No. Patient's initial sepsis screen is negative. Does the patient have a suspected source of infection? No. Patient's initial sepsis screen is negative. Risk Assessment: Do you want to hurt yourself or someone else? Patient reports no desire to harm self or others. Onset of symptoms was 2022. 12:49 Acuity: AVA 4 mb9 12:49 Method Of Arrival: Ambulatory mb9 Triage Assessment: 12:53 General: Appears in no apparent distress. Behavior is calm, cooperative, Smells of. mb9 Pain: Complains of pain in right ear and left ear. EENT: Reports pain. Neuro: Reports dizziness. Cardiovascular: Patient's skin is warm and dry. Respiratory: Reports cough that is Airway is patent Respiratory effort is even, unlabored, Respiratory pattern is regular, symmetrical. GI: Reports nausea. : No signs and/or symptoms were reported regarding the genitourinary system. Derm: Skin is pink, warm \\T\\ dry. Musculoskeletal: Range of motion: intact in all extremities. 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 - Social history:: Smoking status: Patient denies any tobacco usage or history of. Screenin:04 [facility] ED Fall Risk Assessment (Adult) History of falling in the last 3 months, mb9 including since admission No falls in past 3 months (0 pts) Confusion or Disorientation No (0 pts) Intoxicated or Sedated No (0 pts) Impaired Gait No (0 pts) Mobility Assist Device Used No (0 pt) Altered Elimination No (0 pt) Score/Fall Risk Level 0 - 2 = Low Risk Oriented to surroundings, Maintained a safe environment, Educated pt \\T\\ family on fall prevention, incl call for assistance when getting out of bed. Abuse screen: Denies threats or abuse. Nutritional screening: No deficits noted. Tuberculosis screening: No symptoms or risk factors identified. Assessment: 13:21 Reassessment: Faxed medicine order to pharmacy. mb9 Vital Signs: 12:49 BP 150 / 78; Pulse 80; Resp 18; Temp 97.5; Pulse Ox 97% on R/A; Weight 122.47 kg; mb9 Height 5 ft. 7 in. ; 12:49 Body Mass Index 42.29 (122.47 kg, 170.18 cm) mb9 ED Course: 12:36 Patient arrived in ED. im 12:40 Smitha Hodgson FNP-C [facility]. kb 12:40 Honorio Palumbo MD is Attending Physician. kb 12:46 Honorio Palumbo MD is Attending Physician. kdr 12:51 Triage completed. mb9 12:51 Arm band placed on. mb9 12:53 Patricia Dunaway RN is Primary Nurse. mb9 13:04 Placed in gown. Bed in low position. Call light in reach. Client placed on continuous mb9 cardiac and pulse oximetry monitoring. NIBP monitoring applied. 13:04 No provider procedures requiring assistance completed. Patient did not have IV access mb9 during this emergency room visit. Administered Medications: 13:31 Drug: Pseudoephedrine PO 60 mg Route: PO; mb9 13:32 Follow up: Response: No adverse reaction mb9 Medication: 13:04 VIS not applicable for this client. mb9 Outcome: 13:15 Discharge ordered by . kdr 13:32 Discharged to home ambulatory. mb9 13:32 Condition: stable 13:32 Discharge instructions given to patient, Instructed on discharge instructions, follow up and referral plans. Demonstrated understanding of instructions, follow-up care, medications, Prescriptions given X 1. 13:32 Patient left the ED. mb9 Signatures: Smitha Hodgson, ECONOMIC FORECASTER-C ECONOMIC FORECASTER-CkHonorio Heredia MD MD kdr Breneman, Mary Beth, RN RN mb9 Ofelia Aguillon
--- NOTE | 2023-03-06 13:15 | EDPHYS ---
Physician Documentation [facility] Name: Rashmi Gutierres Age: 37 yrs Sex: Female : 1985 Arrival Date: 03/06/2023 Time: 12:34 Bed 10 Private MD: ED Physician Honorio Palumbo HPI: 03/06 18:10 This 37 yrs old Female presents to ER via Ambulatory with complaints of kdr Dizziness, Ear issues. 18:13 Patient complains of runny nose, fever, chills and bilateral ear pain. She states that kdr this started last Wednesday and with her ears feeling congested, she has been somewhat dizzy and off balance and sounds are muffled. Patient otherwise denies any other acute illnesses and does not appear toxic in any way. Onset: The symptoms/episode began/occurred gradually, 4 day(s) ago. Severity of symptoms: At their worst the symptoms were very mild mild in the emergency department the symptoms are unchanged. The patient has not experienced similar symptoms in the past. The patient has not recently seen a physician. 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 - Social history:: Smoking status: Patient denies any tobacco usage or history of. ROS: 18:13 Constitutional: Negative for weight loss, Eyes: Negative for injury, pain, redness, and kdr discharge, Neck: Negative for injury, pain, and swelling, Cardiovascular: Negative for chest pain, palpitations, and edema, Respiratory: Negative for shortness of breath, cough, wheezing, and pleuritic chest pain, Abdomen/GI: Negative for abdominal pain, nausea, vomiting, diarrhea, and constipation, Back: Negative for injury and pain, : Negative for injury, bleeding, discharge, and swelling, MS/Extremity: Negative for injury and deformity, Skin: Negative for injury, rash, and discoloration, Neuro: Negative for headache, weakness, numbness, tingling, and seizure activity. Psych: Negative for depression, anxiety, suicide ideation, homicidal ideation, and hallucinations, Allergy/Immunology: Negative for hives, rash, and allergies, Endocrine: Negative for neck swelling, polydipsia, polyuria, polyphagia, and marked weight changes, Hematologic/Lymphatic: Negative for swollen nodes, abnormal bleeding, and unusual bruising. 18:13 Constitutional: Positive for chills, fatigue, fever, malaise, Negative for poor PO intake. 18:13 ENT: Positive for nasal discharge, rhinorrhea, Bilateral ear fullness. Exam: 18:15 Constitutional: This is a well developed, well nourished patient who is awake, alert, kdr and in no acute distress. Head/Face: Normocephalic, atraumatic. Eyes: Pupils equal round and reactive to light, extra-ocular motions intact. Lids and lashes normal. Conjunctiva and sclera are non-icteric and not injected. Cornea within normal limits. Periorbital areas with no swelling, redness, or edema. Neck: Trachea midline, no thyromegaly or masses palpated, and no cervical lymphadenopathy. Supple, full range of motion without nuchal rigidity, or vertebral point tenderness. No Meningismus. Chest/axilla: Normal chest wall appearance and motion. Nontender with no deformity. No lesions are appreciated. Cardiovascular: Regular rate and rhythm with a normal S1 and S2. No gallops, murmurs, or rubs. Normal PMI, no JVD. No pulse deficits. Respiratory: Lungs have equal breath sounds bilaterally, clear to auscultation and percussion. No rales, rhonchi or wheezes noted. No increased work of breathing, no retractions or nasal flaring. Abdomen/GI: Soft, non-tender, with normal bowel sounds. No distension or tympany. No guarding or rebound. No evidence of tenderness throughout. Back: No spinal tenderness. No costovertebral tenderness. Full range of motion. MS/ Extremity: Pulses equal, no cyanosis. Neurovascular intact. Full, normal range of motion. Neuro: Awake and alert, GCS 15, oriented to person, place, time, and situation. Cranial nerves II-XII grossly intact. Motor strength 5/5 in all extremities. Sensory grossly intact. Cerebellar exam normal. Normal gait. Psych: Awake, alert, with orientation to person, place and time. Behavior, mood, and affect are within normal limits. Vital Signs: 12:49 BP 150 / 78; Pulse 80; Resp 18; Temp 97.5; Pulse Ox 97% on R/A; Weight 122.47 kg; mb9 Height 5 ft. 7 in. ; 12:49 Body Mass Index 42.29 (122.47 kg, 170.18 cm) mb9 MDM: 13:15 Patient medically screened. kdr 18:13 Data reviewed: vital signs, nurses notes. kdr Administered Medications: 13:31 Drug: Pseudoephedrine PO 60 mg Route: PO; mb9 13:32 Follow up: Response: No adverse reaction mb9 Disposition Summary: 03/06/23 13:15 Discharge Ordered Location: Home kdr Problem: new kdr Symptoms: have improved kdr Condition: Stable kdr Diagnosis - Other viral infections of unspecified site kdr - Nasal congestion kdr - Acute upper respiratory infection, unspecified kdr - Dizziness and giddiness kdr Followup: kdr - With: Private Physician - When: 2 - 3 days - Reason: If symptoms return, Further diagnostic work-up, Recheck today's complaints, Continuance of care, Re-evaluation by your physician Discharge Instructions: - Discharge Summary Sheet kdr - Dizziness kdr - Viral Respiratory Infection kdr - Upper Respiratory Infection, Adult, [id number] kdr - Dizziness, [id number] kdr Forms: - Medication Reconciliation Form kdr - Thank You Letter kdr - Patient Portal Instructions kdr - Leadership Thank You Letter kdr Prescriptions: - pseudoephedrine HCl 120 mg Oral tablet, extended release - take 1 tablet by ORAL route once As needed; 10 tablet; Refills: 0, Product kdr Selection Permitted Signatures: Honorio Palumbo MD MD kdr Patricia Dunaway RN RN mb9
[2023-03-06 13:52] VITALS: BP 150/78; TEMP 97.5; O2SAT 97
[2023-03-06] MEDS ORDERED: PSEUDOEPHEDRINE 30 MG TAB PO ONE (14:00)
== END 2023-03-06 13:32 | disposition home or self-care (01) ==
LOC: ER 12:34
DX: B34.9 Viral infection, unspecified (principal); J06.9 Acute upper respiratory infection, unspecified; R09.81 Nasal congestion
CPT/HCPCS: 99283

== ENCOUNTER 2023-06-17 22:59 | Emergency (ER) | payer SELFPAY ==
--- OUTSIDE RECORDS SUMMARY | 2023-06-17 23:04 | XMS REPORT | Continuity of Care Document ---
Author Name Unknown Address [address] [facility] [address] [place] [address] [facility] thconnect Address [address] [facility] [place] [address] Care Team Providers Care Electrical Lineworker Name Role Phone TOMÁS JACKSON Primary Care Physician LEI Velasquez Attending Clinician Unavailable Pgy2 Attending Clinician Unavailable Nubia Thomas MD Attending Clinician [phone] HEIDY MCGARRY Attending Clinician HEIDY Rashid Attending Clinician Luisana solorzano Pcp, Patient Does Not Have A Attending Clinician JENNIE TIMMONS Attending Clinician Jennie Durham MD Attending Clinician [phone] Only, Ang Db Test Attending Clinician Farooq Hallman MD Attending Clinician [phone] FAROOQ DEL TORO III Attending Clinician RANGEL Ferrari Attending Clinician Unavailable Rangel Galdamez MD Attending Clinician [phone] Doctor Unassigned, [place] Attending Clinician U JENNIE Arauz Admitting Clinician Abena campoverde Payers Payer Name Policy Type Policy Number Effective Date Expirati on Date Source [facility] [id number] 2022 00:00:00 Problems Condition Name Condition Details Condition Category Status Onset Date Resolution Date Last Treatment Date Treating Clinician Comments Source Right lower quadrant abdominal pain Right lower quadrant abdominal pain Disease Active 11-08 00:00: 00 [facility] Teratoma of ovary, left Teratoma of ovary, left Disease Active 11-08 00:00: 00 [facility] Family planning, IUD check Family planning, IUD check Disease Active 11-07 00:00: 00 [facility] Obesity Obesity Disease Active 09-10 00:00: 00 Overview: Formattin g of this note might be different from the original. 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 [facility] Hypothyroi d Hypothyroi d Disease Active 09-10 00:00: 00 [facility] Allergies, Adverse Reactions, Alerts Allergy Name Allergy Type Status Severity Reaction(s) Onset Date Inactive Date Treating Clinician Comments Source NO KNOWN ALLERGIE S Drug Class Active [facility] Social History Social Habit Start Date Stop Date Quantity Comments Source Alcohol intake 2022-12-10 00:00:00 2022-12-10 00:00:00 Current non-drinker of alcohol (finding) [facility] Exposure to SARS-CoV-2 (event) 2022-11-28 00:00:00 2022-12-08 11:30:00 Not sure [facility] Sex Assigned At 1985 00:00:00 1985 00:00:00 [facility] Smoking Status Start Date Stop Date Source Never smoked tobacco [facility] Medications Ordered Medication Name Filled Medication Name Start Date Stop Date Current Medication? Ordering Clinician Indication Dosage Frequency Signature (SIG) Comments Components Source iopamidol (ISOVUE 370-500 mL) injection 100 mL 11-08 23:30: 00 11-09 00:22 :00 No [id number] 100mL 100 mL, Intravenou s, ONCE, 1 dose, On 11/08/22 at 1830, Routine [facility] NaCl 0.9% (NS) bolus infusion 1,000 mL 11-08 22:45: 00 11-09 02:00 :00 No 1000mL at 999 mL/hr, 1,000 mL, IV Infusion, ONCE, 1 dose, On 11/08/22 at 1745, STAT [facility] maalox:diph enhydrAMINE :lidocaine 2 % viscous 1:1:1 (FIRST-MOUT HWASH BLM) oral suspension 15 mL 11-08 22:45: 00 11-08 23:59 :00 No 15mL 15 mL, Oral, ONCE, 1 dose, On 11/08/22 at 1745, Routine [facility] Nitrofurant oin&Nit. Macrocryst 100 mg capsule 11-08 00:00: 00 11-16 04:59 :00 No [id number] 100mg Take 1 capsule by mouth in the morning and 1 capsule in the evening. Do all this for 7 days. [facility] acetaminoph en-codeine (TYLENOL-CO DEINE #3) 300-30 mg tablet 11-08 00:00: 00 11-14 04:59 :00 No [id number] 1{tbl} Take 1 tablet by mouth every 6 (six) hours as needed for Pain (scale 4-6) for up to 5 days. Indication s: acute pain [facility] ondansetron 4 mg disintegrat ing tablet 11-08 00:00: 00 11-14 04:59 :00 No [id number] 4mg Take 1 tablet by mouth every 8 (eight) hours as needed for Nausea and Vomiting (N/V) for up to 5 days. [facility] ergocalcife rol, vitamin D2, (VITAMIN D ORAL) 2020-07 14:48: 01 Yes [id number] Take 50,000 mg by mouth weekly. [facility] metFORMIN 500 mg 24 hr tablet 2020-07 14:48: 01 Yes 500mg Take 500 mg by mouth 2 (two) times daily with meals. [facility] levothyroxi ne (UNITHROID) 125 mcg tablet 2020-07 14:48: 01 Yes 125ug Take 125 mcg by mouth every morning. [facility] atorvastati n (LIPITOR) 20 mg tablet 2020-07 14:48: 01 Yes 20mg Take 20 mg by mouth at bedtime. [facility] ergocalcife rol, vitamin D2, (VITAMIN D ORAL) 2020-07 14:48: 01 Yes [id number] Take 50,000 mg by mouth weekly. [facility] metFORMIN 500 mg 24 hr tablet 2020-07 14:48: 01 Yes 500mg Take 500 mg by mouth 2 (two) times daily with meals. [facility] levothyroxi ne (UNITHROID) 125 mcg tablet 2020-07 14:48: 01 Yes 125ug Take 125 mcg by mouth every morning. [facility] atorvastati n (LIPITOR) 20 mg tablet 2020-07 14:48: 01 Yes 20mg Take 20 mg by mouth at bedtime. [facility] ergocalcife rol, vitamin D2, (VITAMIN D ORAL) 2020-07 14:48: 01 Yes [id number] Take 50,000 mg by mouth weekly. [facility] metFORMIN 500 mg 24 hr tablet 2020-07 14:48: 01 Yes 500mg Take 500 mg by mouth 2 (two) times daily with meals. [facility] levothyroxi ne (UNITHROID) 125 mcg tablet 2020-07 14:48: 01 Yes 125ug Take 125 mcg by mouth every morning. [facility] atorvastati n (LIPITOR) 20 mg tablet 2020-07 14:48: 01 Yes 20mg Take 20 mg by mouth at bedtime. [facility] ergocalcife rol, vitamin D2, (VITAMIN D ORAL) 2020-07 14:48: 01 Yes [id number] Take 50,000 mg by mouth weekly. [facility] metFORMIN 500 mg 24 hr tablet 2020-07 14:48: 01 Yes 500mg Take 500 mg by mouth 2 (two) times daily with meals. [facility] levothyroxi ne (UNITHROID) 125 mcg tablet 2020-07 14:48: 01 Yes 125ug Take 125 mcg by mouth every morning. [facility] atorvastati n (LIPITOR) 20 mg tablet 2020-07 14:48: 01 Yes 20mg Take 20 mg by mouth at bedtime. [facility] ergocalcife rol, vitamin D2, (VITAMIN D ORAL) 2020-07 14:48: 01 Yes [id number] Take 50,000 mg by mouth weekly. [facility] metFORMIN 500 mg 24 hr tablet 2020-07 14:48: 01 Yes 500mg Take 500 mg by mouth 2 (two) times daily with meals. [facility] levothyroxi ne (UNITHROID) 125 mcg tablet 2020-07 14:48: 01 Yes 125ug Take 125 mcg by mouth every morning. [facility] atorvastati n (LIPITOR) 20 mg tablet 2020-07 14:48: 01 Yes 20mg Take 20 mg by mouth at bedtime. [facility] ergocalcife rol, vitamin D2, (VITAMIN D ORAL) 2020-07 14:48: 01 Yes [id number] Take 50,000 mg by mouth weekly. [facility] metFORMIN 500 mg 24 hr tablet 2020-07 14:48: 01 Yes 500mg Take 500 mg by mouth 2 (two) times daily with meals. [facility] levothyroxi ne (UNITHROID) 125 mcg tablet 2020-07 14:48: 01 Yes 125ug Take 125 mcg by mouth every morning. [facility] atorvastati n (LIPITOR) 20 mg tablet 2020-07 14:48: 01 Yes 20mg Take 20 mg by mouth at bedtime. [facility] ergocalcife rol, vitamin D2, (VITAMIN D ORAL) 2020-07 14:48: 01 Yes [id number] Take 50,000 mg by mouth weekly. [facility] metFORMIN 500 mg 24 hr tablet 2020-07 14:48: 01 Yes 500mg Take 500 mg by mouth 2 (two) times daily with meals. [facility] levothyroxi ne (UNITHROID) 125 mcg tablet 2020-07 14:48: 01 Yes 125ug Take 125 mcg by mouth every morning. [facility] atorvastati n (LIPITOR) 20 mg tablet 2020-07 14:48: 01 Yes 20mg Take 20 mg by mouth at bedtime. [facility] levothyroxi ne (SYNTHROID) 100 mcg tablet 2020-07 14:46: 12 05-28 00:00 :00 No 100ug Take 100 mcg by mouth every morning. [facility] Vital Signs Vital Name Observation Time Observation Value Comments Ed whitley Systolic blood pressure 2022-12-10 14:20:00 142 mm[Hg] [facility] Diastolic blood pressure 2022-12-10 14:20:00 97 mm[Hg] [facility] Heart rate 2022-12-10 14:20:00 77 /min [facility] Body temperature 2022-12-10 14:20:00 36.61 Lnaey [facility] Respiratory rate 2022-12-10 14:20:00 20 /min [facility] Body height 2022-12-10 14:20:00 170.2 cm [facility] Body weight 2022-12-10 14:20:00 126.599 kg [facility] BMI 2022-12-10 14:20:00 43.71 kg/m2 [facility] Systolic blood pressure 2022-11-09 04:00:00 144 mm[Hg] [facility] Diastolic blood pressure 2022-11-09 04:00:00 106 mm[Hg] [facility] Heart rate 2022-11-09 04:00:00 75 /min [facility] Respiratory rate 2022-11-09 04:00:00 18 /min [facility] Oxygen saturation in Arterial blood by Pulse oximetry 2022-11-09 04:00:00 98 /min [facility] Body temperature 2022-11-08 22:08:00 37.22 [place] [facility] Body height 2022-11-08 22:08:00 170.2 cm [facility] Body weight 2022-11-08 22:08:00 122.471 kg [facility] BMI 2022-11-08 22:08:00 42.29 kg/m2 [facility] Systolic blood pressure 2021-05-28 20:52:00 133 mm[Hg] [facility] Diastolic blood pressure 2021-05-28 20:52:00 90 mm[Hg] [facility] Heart rate 2021-05-28 20:52:00 99 /min [facility] Respiratory rate 2021-05-28 20:50:00 22 /min [facility] Body height 2021-05-28 20:50:00 170.2 cm [facility] Body weight 2021-05-28 20:50:00 122.653 kg [facility] BMI 2021-05-28 20:50:00 42.35 kg/m2 [facility] Oxygen saturation in Arterial blood by Pulse oximetry 2021-05-28 20:50:00 93 /min [facility] Procedures Procedure Date / Time Performed Performing Clinician Source CARCINOEMBRYONIC ANTIGEN 2022-12-10 15:21:00 Jose Montes De Oca [facility] CA-125 2022-12-10 15:21:00 Mishel [facility] US OVARY TORSION 2022-11-09 03:21:38 Jennie Timmons [facility] CT ABDOMEN PELVIS W CONTRAST 2022-11-09 00:19:44 Jennie Timmons [facility] LIPASE 2022-11-08 23:55:00 Jennie Timmons [facility] COMP. METABOLIC PANEL ([id number]) 2022-11-08 23:55:00 Jennie Timmons [facility] CBC WITH DIFF 2022-11-08 23:55:00 [facility] 2022-11-08 23:55:00 Jennie Timmons [facility] POCT TEST 2022-11-08 23:55:00 Lashaun Timmons [facility] CONSENT/REFUSAL FOR DIAGNOSIS AND TREATMENT 2022-11-08 22:02:23 Doctor Unassigned, [place] [facility] Encounters Start Date/Time End Date/Time Encounter Type Admission Type Attending Clinicians Care Facility Care Department Encounter ID Source 2023-06-03 16:36:45 2023-06-03 16:36:45 Outpatient CHLOE CORONA [id number] Joselo Barrera 2023-05-18 16:23:35 2023-05-18 16:23:35 Outpatient CHLOE [place] [id number] Joselo Barrera 2023-05-17 16:20:02 2023-05-17 16:20:02 Outpatient CHLOE CORONA [id number] Joselo Mitchell Bruce 2023-03-24 09:49:38 2023-03-24 09:49:38 Outpatient CHLOE CORONA [id number] Joselo Barrera 2023-02-11 16:07:11 2023-02-11 16:07:11 Outpatient CHLOE CORONA [id number] Joselo Mitchell Bruce 2022-12-29 17:37:41 2022-12-29 17:37:41 Outpatient CHLOE CORONA [id number] Joselo Mitchell [place] 2022-12-24 13:58:32 2022-12-24 13:58:32 Outpatient [place] [place] [id number] Joselo Mitchell [place] 2022-12-10 10:00:00 2022-12-10 10:25:00 Outpatient Quentin JASONLEI [facility] [id number] [facility] 2022-12-10 10:00:00 2022-12-10 10:00:00 Outpatient Quentin GOMEZ LEI [facility] [id number] [facility] 2022-12-10 09:30:00 2022-12-10 09:49:12 Office Visit Pgy2 Nubia Thomas [facility] [id number] 350.1.13.10 [id number] [id number] [facility] 2022-11-12 14:15:00 2022-11-12 14:15:00 Outpatient HEIDY BUTLER MARISOL [facility] [id number] [facility] 2022-11-11 00:00:00 2022-11-11 00:00:00 Telephone Pcp, Patient Does Not Have A [facility] 1..840.114 350.1.13.10 4.2.7.2.686 [id number] [facility] 2022-11-08 17:10:00 2022-11-08 23:24:00 Emergency X MILLER TIMMONSRAM [facility] ERT [id number] [facility] 2022-11-08 17:10:00 2022-11-08 23:24:00 Emergency Behvipin, Jennie A [facility] 1..840.114 350.1.13.10 4.2.7.2.686 [id number] [facility] 2022-11-04 10:39:22 2022-11-04 10:39:[address] [facility] [id number] Joselo Mitchell [place] 2022-08-08 10:16:44 2022-08-08 10:16:[address] [facility] [id number] Joselo Mitchell [place] 2022-04-03 11:11:22 2022-04-03 11:11:22 Outpatient [facility] [id number] Joselo Mitchell [place] 2021-07-09 14:30:00 2021-07-09 14:45:00 Laboratory Only Only, Ang Db Test Farooq Del Toro [facility] [id number] 350.1.13.10 4.2.7.2.686 [id number] [facility] 2021-07-09 14:30:00 2021-07-09 14:30:00 Outpatient FAROOQ ORELLANA III [facility] [id number] [facility] 2021-05-28 14:40:00 2021-05-28 15:03:10 Outpatient R RANGEL GALDAMEZ [facility] [id number] [facility] 2021-05-28 14:28:00 2021-05-28 15:03:10 Office Visit Rangel Galdamez [facility] SAMI LOPEZ [facility] BU[facility] 1.2840.114 350.1.13.10 4.2.7.2.686 [id number] [facility] 2021-05-28 00:00:00 2021-05-28 00:00:00 Orders Only Doctor Unassigned, [place] [facility] 1.2840.114 350.1.13.10 4.2.7.2.686 [id number] [facility] Results Test Description Test Time Test Comments Results Result Co mments Source TSH, THIRD [id number] 05:10:44* Test Item Value Reference Range Interpretation Comme [facility] TSH, THIRD GENERATION (test code = 2821) 2.890 UIU/ML 0.400-4.100 HEMOGLOBIN [id number] 03:12:59* Test Item Value Reference Range Interpretation Comme [facility] HEMOGLOBIN A1c (test code = 25287) 6.4 % 4.2-5.6 H [employer] GUIDELINES FOR HGB A1C: PREDIABETES/INCREASED RISK . . . . . . . 5.7-6.4% DIAGNOSIS OF DIABETES . . . . . . . . . >=6.5% WITH CONFIRMATION OR APPROPRIATE SYMPTOMS NOTE: ASSAY MAY BE AFFECTED BY HEMOGLOBINOPATHIES (SICKLE CELL ANEMIA, S-C DISEASE, OTHERS) OR ARTIFICIALLY LOWERED BY DECREASED RED CELL SURVIVAL (HEMOLYTIC ANEMIAS, BLOOD LOSS, ETC.). CONSIDER ALTERNATE TESTING OR LABORATORY CONSULTATION. VAGINAL PATHOGENS DNA [id number] 15:33:06* Test Item Value Reference Range Interpretation Comme nts JOSIE SPECIES (test code = 85237) POSITIVE NEGATIVE A G. VAGINALIS (test code = 08470) NEGATIVE NEGATIVE T. VAGINALIS (test code = 36322) NEGATIVE NEGATIVE Note: The BD [facility] irm VPIII Microbial Identification Testis a DNA probe test intended for use in the detectionand identification of Josie species, Gardnerellavaginalis and Trichomonas vaginalis nucleic acid. UNLESS OTHERWISE INDICATED, ALL TESTING PERFORMED AT [facility] [address] [place] [address] HEAD GREASE MAKER: VALORIE JENKINS M.D. CLIA NUMBER [id number] [place]. [id number] TSH, THIRD [id number] 06:44:18* Test Item Value Reference Range Interpretation Comme [facility] TSH, THIRD GENERATION (test code = 2821) 10.200 UIU/ML 0.400-4.100 H FREE T4 (THYROXINE)2022-12-25 06:44:18* Test Item Value Reference Range Interpretation Comme [facility] FREE T4 (THYROXINE) (test co de = 2823) 0.99 NG/DL 0.80-1.90 HEMOGLOBIN [id number] 03:24:33* Test Item Value Reference Range Interpretation Comme [facility] HEMOGLOBIN A1c (test code = 86051) 7.0 % 4.2-5.6 H [employer] GUIDELINES FOR HGB A1C: PREDIABETES/INCREASED RISK . . . . . . . 5.7-6.4% DIAGNOSIS OF DIABETES . . . . . . . . . >=6.5% WITH CONFIRMATION OR APPROPRIATE SYMPTOMS NOTE: ASSAY MAY BE AFFECTED BY HEMOGLOBINOPATHIES (SICKLE CELL ANEMIA, S-C DISEASE, OTHERS) OR ARTIFICIALLY LOWERED BY DECREASED RED CELL SURVIVAL (HEMOLYTIC ANEMIAS, BLOOD LOSS, ETC.). CONSIDER ALTERNATE TESTING OR LABORATORY CONSULTATION. UNLESS OTHERWISE INDICATED, ALL TESTING PERFORMED AT [facility] [address] [place] [address] HEAD GREASE MAKER: VALORIE JENKINS M.D. CLIA NUMBER [id number] [facility] [place]. [id number] COMP. METABOLIC PANEL ([id number])2022-11-09 01:05:46* Test Item Value Reference Range Interpretation Comme nts NA (test code = 1405630183) 136 mmol/L 135-145 K (test code = 4225804169) 3.9 mmol/L 3.5-5.0 CL (test code = 6808226725) 103 mmol/L 98-108 CO2 TOTAL (test code = 2944128742) 23 mmol/L 23-31 AGAP (test code = 3791922138) 10 2-16 BUN (test code = 8422662005) 8 mg/dL 7-23 GLUCOSE (test code = 7819659001) 101 mg/dL 70-110 CREATININE (test code = 4320514741) 0.48 mg/dL 0.50-1.04 L TOTAL BILI (test code = 8950471950) 0.8 mg/dL 0.1-1.1 CALCIUM (test code = 6149475766) 9.1 mg/dL 8.6-10.6 T PROTEIN (test code = 0917589024) 7.9 g/dL 6.3-8.2 ALBUMIN (test code = 9391149451) 4.5 g/dL 3.5-5.0 ALK PHOS (test code = 8220750677) 87 U/L 34-122 ALTv (test code = 1742-6) 80 U/L 5-35 H AST(SGOT) (test code = 4929511960) 77 U/L 13-40 H eGFR (test code = 2072583820) 144.7 mL/min/1.73m2 ANTOINE (test code = ANTOINE) Association of [...] or abnormalities in imaging tests). Lab Interpretation (test code = 90523-6) [facility]normal [facility] 01:05:25* Test Item Value Reference Range Interpretation Comme nts LIPASE (test code = 1178462672) 127 U/L 0-220 Lab Interpretation (test cod e = 87536-9) Normal [facility] WITH [id number] 01:00:47* Test Item Value Reference Range Interpretation Comme nts WBC (test code = 6690-2) 9.53 See_Comment [Automated messa ge] The system which generated this result transmitted reference range: 4.30 - 11.10 10*3/?L. The reference range was not used to interpret this result as normal/abnormal. RBC (test code = 789-8) 4.47 See_Comment [Automated messa ge] The system which generated this result transmitted reference range: 3.93 - 5.25 10*6/?L. The reference range was not used to interpret this result as normal/abnormal. HGB (test code = 718-7) 13.3 g/dL 11.6-15.0 HCT (test code = 4544-3) 37.8 % 35.7-45.2 MCV (test code = 787-2) 84.6 fL 80.6-95.5 MCH (test code = 785-6) 29.8 pg 25.9-32.8 MCHC (test code = 786-4) 35.2 g/dL 31.6-35.1 H RDW-SD (test code = 55626-1) 41.7 fL 39.0-49.9 RDW-CV (test code = 788-0) 13.6 % 12.0-15.5 PLT (test code = 777-3) 305 See_Comment [Automated messa ge] The system which generated this result transmitted reference range: 166 - 358 10*3/?L. The reference range was not used to interpret this result as normal/abnormal. MPV (test code = 72500-1) 10.2 fL 9.5-12.9 NRBC/100 WBC (test code = 1318332612) 0.0 See_Comment [Automated So Protect Me ssage] The system which generated this result transmitted reference range: 0.0 - 10.0 /100 WBCs. The reference range was not used to interpret this result as normal/abnormal. NRBC x10^3 (test code = 9424291858) See_Comment [Automated messa ge] The system which generated this result transmitted reference range: 10*3/?L. The reference range was not used to interpret this result as normal/abnormal. GRAN MAT (NEUT) % (test code = 770-8) 68.5 % IMM GRAN % (test code = 0701100231) 0.70 % LYMPH % (test code = 736-9) 20.3 % MONO % (test code = 5905-5) 7.0 % EOS % (test code = 713-8) 3.0 % BASO % (test code = 706-2) 0.5 % GRAN MAT x10^3(ANC) (test code = 6074579377) 6.52 10*3/uL 1.88-7.09 IMM GRAN x10^3 (test code = 6089414304) 0.07 10*3/uL 0.00-0.06 H LYMPH x10^3 (test code = 731-0) 1.93 10*3/uL 1.32-3.29 MONO x10^3 (test code = 742-7) 0.67 10*3/uL 0.33-0.92 EOS x10^3 (test code = 711-2) 0.29 10*3/uL 0.03-0.39 BASO x10^3 (test code = 704-7) 0.05 10*3/uL 0.01-0.07 Lab Interpretation (test code = 06436-4) [facility]normal [facility] [id number] 23:55:00* Test Item Value Reference Range Interpretation Comme nts POCT PREG (test code = 1605) negative On board controls acceptable with C Line (test code = 3574) present POCT PREG LOT # (test code = 3575) [id number] POCT PREG TEST DATE ( test code = 3576) 08/04/2023 Lab Interpretation (test cod e = 67386-2) Normal [facility] MET[facility]OLIC [id number] 06:14:26* Test Item Value Reference Range Interpretation Comme nts GLUCOSE (test code = 2217) 110 MG/DL 70-99 H BUN (test code = 2208) 8 MG/DL 6-20 CREATININE (test code = 2213) 0.63 MG/DL 0.60-1.30 eGFR (2020 CKD-EPI) (test code = ) 116 ML/MIN/1.73 >60 CALC BUN/CREAT (test code = 2234) 13 RATIO 6-28 SODIUM (test code = 2230) 140 MEQ/L 133-146 POTASSIUM (test code = 2227) 4.2 MEQ/L 3.5-5.4 CHLORIDE (test code = 2214) 105 MEQ/L 95-107 CARBON DIOXIDE (test code = 2205) 17 MEQ/L 19-31 L CALCIUM (test code = 2208) 9.4 MG/DL 8.5-10.5 PROTEIN, TOTAL (test code = 2228) 7.3 G/DL 6.1-8.3 ALBUMIN (test code = 2200) 4.3 G/DL 3.5-5.2 CALC GLOBULIN (test code = 2239) 3.0 G/DL 1.9-3.7 CALC A/G RATIO (test code = 2233) 1.4 RATIO 1.0-2.6 BILIRUBIN, TOTAL (test code = 2206) 0.5 MG/DL See_Comment [Automated me ssage] The system which generated this result transmitted reference range: <=1.2. The reference range was not used to interpret this result as normal/abnormal. ALKALINE PHOSPHATASE (test code = 2203) 86 U/L 40-112 AST (test code = 2217) 50 U/L 9-40 H ALT (test code = 2218) 53 U/L 5-40 H LIPID [id number] 06:14:26* Test Item Value Reference Range Interpretation Comme nts CHOLESTEROL (test code = 2209) 201 MG/DL <200 H TRIGLYCERIDES (test code = 223) 117 MG/DL <150 HDL CHOLESTEROL (test code = 2219) 46 MG/DL >39 CALC LDL CHOL (test code = 2236) 133 MG/DL <100 H NOTE: CALCULATED LDL IS BASED ON DEBO-DIANA METHOD WHICHINCLUDES ADJUSTABLE TRIGLYCERIDE:VLDL CHOLESTEROL RATIO.THIS FACTOR VARIES BY MEASURED TRIGLYCERIDE AND NON-HDLCHOLESTEROL CONCENTRATIONS WITH INCREASED CALCULATED LDL SEENIN HIGHER TRIGLYCERIDE OR LOWER NON-HDL SPECIMENS. FOR MOREINFORMATION, SEE CLIENT ANNOUNCEMENT AT [email or web address] RISK RATIO LDL/HDL (test code = 2238) 2.89 RATIO <3.22 TSH REFLEX TO FREE [id number] 02:37:33* Test Item Value Reference Range Interpretation Comme [facility] TSH REFLEX TO FREE T4 (test code = 2834) 2.580 UIU/ML 0.400-4.100 [facility] has impo rtant pathology staff changes effective 09/02/2022. New pathology staff will provide uninterrupted, excellent patient care and clinical consultation. See URL: [email or web address]. UNLESS OTHERWISE INDICATED, ALL TESTING PERFORMED AT [facility] [address] [place] [address] CLIA: [id number], CAP: [id number] HEMOGLOBIN [id number] 02:52:20* Test Item Value Reference Range Interpretation Comme [facility] HEMOGLOBIN A1c (test code = 22947) 6.5 % 4.2-5.6 H [employer] GUIDELINES FOR HGB A1C: PREDIABETES/INCREASED RISK . . . . . . . 5.7-6.4% DIAGNOSIS OF DIABETES . . . . . . . . . >=6.5% WITH CONFIRMATION OR APPROPRIATE SYMPTOMS NOTE: ASSAY MAY BE AFFECTED BY HEMOGLOBINOPATHIES (SICKLE CELL ANEMIA, S-C DISEASE, OTHERS) OR ARTIFICIALLY LOWERED BY DECREASED RED CELL SURVIVAL (HEMOLYTIC ANEMIAS, BLOOD LOSS, ETC.). CONSIDER ALTERNATE TESTING OR LABORATORY CONSULTATION. HEMOGLOBIN [id number] 05:30:41* Test Item Value Reference Range Interpretation Comme [facility] HEMOGLOBIN A1c (test code = 73772) 6.0 % 4.2-5.6 H VITAMIN D, [id number] 04:30:04* Test Item Value Reference Range Interpretation Comme [facility] VITAMIN D, 25 OH (test code = 4958) 26 NG/ML SEE BELOW L NOTE: 25-HYDR OXYVITAMIN D ASSAY INCLUDES 25-HYDROXYVITAMIN D2 AND D3. METHODOLOGY IS CHEMILUMINESCENT IMMUNOASSAY. INTERPRETIVE RANGES PEDIATRIC (<17 YEARS) . . . . . . . . . . . NG/ML 20-100ADULT: INSUFFICIENT . . . . . . . . . . . . . . NG/ML <20 SUBOPTIMAL . . . . . . . . . . . . . . . NG/ML 20-29 OPTIMAL . . . . . . . . . . . . . . . . . NG/ML 30-100 UNLESS OTHERWISE INDICATED, ALL TESTING PERFORMED [facility] [address] [place] [id number] HEAD GREASE MAKER: CLAY NEWBERRY M.D. [place] NUMBER [id number] [facility] [place]. [id number] LIPID [id number] 04:16:43* Test Item Value Reference Range Interpretation Comme nts CHOLESTEROL (test code = 2210) 185 MG/DL <200 TRIGLYCERIDES (test code = 2232) 157 MG/DL <150 H HDL CHOLESTEROL (test code = 2220) 45 MG/DL >39 CALC LDL CHOL (test code = 2237) 113 MG/DL <100 H NOTE: CALCULATED LDL IS BASED ON DEBO-DIANA METHOD WHICHINCLUDES ADJUSTABLE TRIGLYCERIDE:VLDL CHOLESTEROL RATIO.THIS FACTOR VARIES BY MEASURED TRIGLYCERIDE AND NON-HDLCHOLESTEROL CONCENTRATIONS WITH INCREASED CALCULATED LDL SEENIN HIGHER TRIGLYCERIDE OR LOWER NON-HDL SPECIMENS. FOR MOREINFORMATION, SEE CLIENT ANNOUNCEMENT AT [email or web address] RATIO LDL/HDL (test code = 2238) 2.51 RATIO <3.22 COMPREHENSIVE METABOLIC [id number] 04:16:43* Test Item Value Reference Range Interpretation Comme nts GLUCOSE (test code = 2217) 98 MG/DL 70-99 BUN (test code = 2208) 9 MG/DL 6-20 CREATININE (test code = 2214) 0.62 MG/DL 0.60-1.30 eGFR (2020 CKD-EPI) (test code = 72049) 118 ML/MIN/1.73 >60 CALC BUN/CREAT (test code = 2235) 15 RATIO 6-28 SODIUM (test code = 2231) 141 MEQ/L 133-146 POTASSIUM (test code = 2228) 4.1 MEQ/L 3.5-5.4 CHLORIDE (test code = 2215) 104 MEQ/L 95-107 CARBON DIOXIDE (test code = 2206) 23 MEQ/L 19-31 CALCIUM (test code = 2209) 9.4 MG/DL 8.5-10.5 PROTEIN, TOTAL (test code = 222) 7.8 G/DL 6.1-8.3 ALBUMIN (test code = 220) 4.4 G/DL 3.5-5.2 CALC GLOBULIN (test code = 2240) 3.4 G/DL 1.9-3.7 CALC A/G RATIO (test code = 2234) 1.3 RATIO 1.0-2.6 BILIRUBIN, TOTAL (test code = 2207) 0.5 MG/DL See_Comment [Automated me ssage] The system which generated this result transmitted reference range: <=1.2. The reference range was not used to interpret this result as normal/abnormal. ALKALINE PHOSPHATASE (test code = 2203) 75 U/L 40-112 AST (test code = 2218) 71 U/L 9-40 H ALT (test code = 2219) 82 U/L 5-40 H TSH, THIRD [id number] 03:55:19* Test Item Value Reference Range Interpretation Comme [facility] TSH, THIRD GENERATION (test code = 2821) 2.880 UIU/ML 0.400-4.100 VITAMIN D, 25 [id number] 03:49:06* Test Item Value Reference Range Interpretation Comme [facility] VITAMIN D, 25 OH (test code = 4958) 37 NG/ML SEE BELOW NOTE: 25-HYDR OXYVITAMIN D ASSAY INCLUDES 25-HYDROXYVITAMIN D2 AND D3. METHODOLOGY IS CHEMILUMINESCENT IMMUNOASSAY. INTERPRETIVE RANGES PEDIATRIC (<17 YEARS) . . . . . . . . . . . NG/ML 20-100ADULT: INSUFFICIENT . . . . . . . . . . . . . . NG/ML <20 SUBOPTIMAL . . . . . . . . . . . . . . . NG/ML 20-29 OPTIMAL . . . . . . . . . . . . . . . . . NG/ML 30-100 COMPREHENSIVE METABOLIC [id number] 02:45:51* Test Item Value Reference Range Interpretation Comme [facility] GLUCOSE (test code = 2217) 105 MG/DL 70-99 H BUN (test code = 2207) 10 MG/DL 6-20 CREATININE (test code = 2214) 0.60 MG/DL 0.60-1.30 eGFR (2020 CKD-EPI) (test code = 97493) 118 ML/MIN/1.73 >60 CALC BUN/CREAT (test code = 5) 17 RATIO 6-28 SODIUM (test code = 223) 140 MEQ/L 133-146 POTASSIUM (test code = 2228) 4.3 MEQ/L 3.5-5.4 CHLORIDE (test code = 2214) 102 MEQ/L 95-107 CARBON DIOXIDE (test code = 6) 19 MEQ/L 19-31 CALCIUM (test code = 2208) 9.4 MG/DL 8.5-10.5 PROTEIN, TOTAL (test code = 2228) 7.7 G/DL 6.1-8.3 ALBUMIN (test code = 2200) 4.5 G/DL 3.5-5.2 CALC GLOBULIN (test code = 0) 3.2 G/DL 1.9-3.7 CALC A/G RATIO (test code = 2233) 1.4 RATIO 1.0-2.6 BILIRUBIN, TOTAL (test code = 2206) 0.3 MG/DL See_Comment [Automated me ssage] The system which generated this result transmitted reference range: <=1.2. The reference range was not used to interpret this result as normal/abnormal. ALKALINE PHOSPHATASE (test code = 2203) 89 U/L 40-112 AST (test code = 8) 77 U/L 9-40 H ALT (test code = 2219) 99 U/L 5-40 H UNLESS OTHERWISE INDICATED, ALL TESTING PERFORMED [facility] [address] [place] [id number] HEAD GREASE MAKER: CLAY NEWBERRY M.D. CLIA NUMBER [id number] [facility] [place]. [id number] HEMOGLOBIN [id number] 03:51:30* Test Item Value Reference Range Interpretation Comme nts HEMOGLOBIN A1c (test code = 27159) 6.3 % 4.2-5.6 H"
[2023-06-18 02:22] LABS: SARS-COV-2 RT PCR NEGATIVE (NEGATIVE)
--- NOTE | 2023-06-18 02:38 | EDPHYS ---
Physician Documentation [facility] Name: Rashmi Gutierres Age: 38 yrs Sex: Female : 1985 Arrival Date: 06/17/2023 Time: 22:59 Bed DX1 Private MD: ED Physician Adria Barth HPI: 06/18 00:05 This 38 yrs old Female presents to ER via Ambulatory with complaints of Ear cp Pain, Congestion. 00:05 The patient presents with pain, that is acute. The complaints affect the left ear. cp Onset: The symptoms/episode began/occurred 2 day(s) ago. Associated signs and symptoms: Pertinent positives: nasal congestion, sore throat, cough, Pertinent negatives: fever, vomiting. Severity of symptoms: in the emergency department the symptoms are unchanged despite home interventions. Historical: - Allergies: 06/17 23:33 No Known Allergies; jb4 - PMHx: 23:33 diabetes mellitus; Hypothyroidism; jb4 - PSHx: 23:33 None; jb4 - Immunization history:: Adult Immunizations up to date. - Social history:: Smoking status: Patient denies any tobacco usage or history of. ROS: 06/18 00:10 Constitutional: Negative for body aches, fever, poor PO intake, cp 00:10 Respiratory: Positive for cough, Negative for shortness of breath, wheezing, cp 00:10 Abdomen/GI: Negative for 00:10 Cardiovascular: Negative for chest pain, edema, palpitations, cp 00:10 Eyes: Negative for injury, pain, redness, and discharge, cp 00:10 ENT: Positive for ear pain, sore throat, nasal congestion, Negative for drainage from ear(s), difficulty swallowing, difficulty handling secretions, 00:10 : Negative for urinary symptoms, 00:10 Skin: Negative for rash, 00:10 Neuro: Negative for altered mental status, dizziness, headache, weakness, 00:10 All other systems are negative, Exam: 00:15 Head/Face: Normocephalic, atraumatic. cp 00:15 Constitutional: The patient appears in no acute distress, alert, awake, non-toxic, well developed, well nourished, obese, 00:15 Eyes: Periorbital structures: appear normal, Conjunctiva: normal, no exudate, no injection, Sclera: no appreciated abnormality, Lids and lashes: appear normal, bilaterally, 00:15 ENT: External ear(s): are unremarkable, Ear canal(s): are normal, clear, TM's: bulging, is not appreciated, bilaterally, erythema, that is mild, bilaterally, Nose: is normal, Mouth: Lips: moist, Oral mucosa: moist, Posterior pharynx: Airway: no evidence of obstruction, patent, erythema, that is mild, exudate, is not appreciated, 00:15 Neck: ROM/movement: is normal, is supple, no meningismus, no nuchal rigidity, cp 00:15 Chest/axilla: Inspection: normal, 00:15 Cardiovascular: Rate: normal, Rhythm: regular, 00:15 Respiratory: the patient does not display signs of respiratory distress, Respirations: normal, no use of accessory muscles, no retractions, labored breathing, is not present, Breath sounds: decreased breath sounds, are not appreciated, stridor, is not appreciated, + upper airway congestion. wheezing: is not appreciated, 00:15 Abdomen/GI: Exam negative for discomfort, distension, guarding, Inspection: abdomen appears normal, Vital Signs: 06/17 23:31 BP 137 / 82; Pulse 85; Resp 16; Pulse Ox 98% on R/A; Weight 122.47 kg; Height 5 ft. 7 jb4 in. ; Pain 5/10; 23:31 Body Mass Index 42.29 (122.47 kg, 170.18 cm) jb4 23:31 Pain Scale: Adult jb4 MDM: 23:19 Patient medically screened. cp 06/18 02:37 Differential diagnosis: otitis media, otitis externa, acute otalgia, Respiratory rn infection, sinusitis. Data reviewed: vital signs, nurses notes, lab test result(s), and as a result, I will discharge patient. Counseling: I had a detailed discussion with the patient and/or guardian regarding the historical points, exam findings, and any diagnostic results supporting the discharge/admit diagnosis, lab results, the need for outpatient follow up, to return to the emergency department if symptoms worsen or persist or if there are any questions or concerns that arise at home. Special discussion: I discussed with the patient/guardian in detail that at this point there is no indication for admission to the hospital. It is understood, however, that if the symptoms persist or worsen the patient needs to return immediately for re-evaluation. 06/18 01:27 Order name: COVID-19/FLU A+B/RSV; Complete Time: 02:37 EDMS 06/18 01:27 Order name: Group A Streptococcus Rapid Sc EDMS 06/18 01:58 Order name: Throat Culture EDMS Administered Medications: No medications were administered Disposition: 05:32 Co-signature as Attending Physician, Adria Barth MD I reviewed the patient's care rn provided by the Advanced Practice Provider and agree with the diagnosis and treatment plan. Disposition Summary: 06/18/23 02:38 Discharge Ordered Notes: Location: Home rn Problem: new rn Symptoms: have improved rn Condition: Stable rn Diagnosis - Acute sinusitis, unspecified rn - Otalgia, unspecified ear rn Followup: rn - With: Private Physician - When: As needed - Reason: Recheck today's complaints, Re-evaluation by your physician Discharge Instructions: - Discharge Summary Sheet rn - Sinusitis, Adult rn Forms: - Medication Reconciliation Form rn - Thank You Letter rn - Antibiotic oncology research rn - Prescription Opioid Use rn - Patient Portal Instructions rn - Leadership Thank You Letter rn Prescriptions: - Zithromax Z-Tremaine 250 mg Oral Tablet - take 1 tablet ORAL route as directed for 5 days Day 1 - take two (2) tablets rn one time. Day 2, 3, 4 , 5 take one (1) tablet once daily.; 6 tablet; Refills: 0, Product Selection Permitted Signatures: Dispatcher [employer] EDMS Adria Barth MD MD rn Nathaniel Bettencourt PA PA cp Bryson, James, RN RN jb4 Corrections: (The following items were deleted from the chart) 01: 01:42 SARS-COV-2 RT PCR+MOL.LAB.BRZ ordered. EDMS EDMS :59 01:42 Influenza Screen (A \T\ B)+BA.LAB.BRZ ordered. EDMS EDMS 01:59 01:42 Group A Streptococcus Rapid Sc+BA.LAB.BRZ ordered. EDMS EDMS
--- NOTE | 2023-06-18 02:38 | ER ---
Nurse's Notes [facility] Name: Rashmi Gutierres Age: 38 yrs Sex: Female : 1985 Arrival Date: 06/17/2023 Time: 22:59 Bed DX1 Private MD: Diagnosis: Acute sinusitis, unspecified;Otalgia, unspecified ear Presentation: 06/17 23:31 Chief complaint: Patient states: I am having ear pain that started 2 days ago and jb4 congestion that started tonight. Coronavirus screen: At this time, the client does not indicate any symptoms associated with coronavirus-19. Ebola Screen: No symptoms or risks identified at this time. Initial Sepsis Screen: Does the patient meet any 2 criteria? No. Patient's initial sepsis screen is negative. Does the patient have a suspected source of infection? No. Patient's initial sepsis screen is negative. Risk Assessment: Do you want to hurt yourself or someone else? Patient reports no desire to harm self or others. Onset of symptoms was June 17, 2023. Transition of care: patient was not received from another setting of care. 23:31 Method Of Arrival: Ambulatory jb4 23:31 Acuity: AVA 4 jb4 Historical: - Allergies: 23:33 No Known Allergies; jb4 - PMHx: 23:33 diabetes mellitus; Hypothyroidism; jb4 - PSHx: 23:33 None; jb4 - Immunization history:: Adult Immunizations up to date. - Social history:: Smoking status: Patient denies any tobacco usage or history of. Screenin/15 02:49 [facility] [place] ED Fall Risk Assessment (Adult) History of falling in the last 3 months, jb4 including since admission No falls in past 3 months (0 pts) Confusion or Disorientation No (0 pts) Score/Fall Risk Level 0 - 2 = Low Risk Oriented to surroundings, Maintained a safe environment. Abuse screen: Denies threats or abuse. Nutritional screening: No deficits noted. Tuberculosis screening: No symptoms or risk factors identified. Assessment: 06/17 23:45 General: Appears in no apparent distress. uncomfortable, Behavior is calm, cooperative, jb4 appropriate for age. Pain: Complains of pain in right ear and left ear Pain does not radiate. Pain currently is 6 out of 10 on a pain scale. Neuro: Level of Consciousness is awake, alert, obeys commands, Oriented to person, place, time, situation. Cardiovascular: Patient's skin is warm and dry. Respiratory: Airway is patent Respiratory effort is even, unlabored, Respiratory pattern is regular, symmetrical. GI: No signs and/or symptoms were reported involving the gastrointestinal system. : No signs and/or symptoms were reported regarding the genitourinary system. EENT: Ear canal clear on left ear and right ear. Derm: Skin is intact, Skin is pink, warm \T\ dry. Musculoskeletal: Circulation, motion, and sensation intact. Range of motion: intact in all extremities. 06/18 01:00 Reassessment: Patient appears in no apparent distress at this time. Patient and/or jb4 family updated on plan of care and expected duration. Pain level reassessed. Patient is alert, oriented x 3, equal unlabored respirations, skin warm/dry/pink. 02:00 Reassessment: Patient appears in no apparent distress at this time. Patient and/or jb4 family updated on plan of care and expected duration. Pain level reassessed. Patient is alert, oriented x 3, equal unlabored respirations, skin warm/dry/pink. Vital Signs: 06/17 23:31 BP 137 / 82; Pulse 85; Resp 16; Pulse Ox 98% on R/A; Weight 122.47 kg; Height 5 ft. 7 jb4 in. ; Pain 5/10; 23:31 Body Mass Index 42.29 (122.47 kg, 170.18 cm) jb4 23:31 Pain Scale: Adult jb4 ED Course: 23:03 Patient arrived in ED. gm2 23:18 Nathaniel Bettencourt PA is PHCP. cp 23:18 Adria Barth MD is Attending Physician. cp 23:33 Triage completed. jb4 23:33 Arm band placed on right wrist. jb4 06/18 02:49 Patient has correct armband on for positive identification. jb4 02:49 No provider procedures requiring assistance completed. Patient did not have IV access jb4 during this emergency room visit. Administered Medications: No medications were administered Outcome: 02:38 Discharge ordered by . rn 02:49 Discharged to home ambulatory, jb4 02:49 Condition: stable 02:49 Discharge instructions given to patient, Instructed on discharge instructions, follow up and referral plans. medication usage, Demonstrated understanding of instructions, follow-up care, medications, Prescriptions given X 1, 02:50 Patient left the ED. jb4 Signatures: Adria Barth MD MD rn Nathaniel Bettencourt PA PA cp Bryson, James, RN RN jb4 Alyssa Raphael gm2 Corrections: (The following items were deleted from the chart) 02: 02:34 General: Appears in no apparent distress. uncomfortable, Behavior is calm, jb4 cooperative, appropriate for age, jb4 : 02:34 Pain: Complains of pain in right ear and left ear Pain does not radiate. Pain jb4 currently is 6 out of 10 on a pain scale. jb4 02: 02:34 Neuro: Level of Consciousness is awake, alert, obeys commands, Oriented to jb4 person, place, time, situation, jb4 : 02:34 Cardiovascular: Patient's skin is warm and dry. jb4 jb4 02:37 02:34 Respiratory: Airway is patent Respiratory effort is even, unlabored, Respiratory jb4 pattern is regular, symmetrical, jb4 : 02:34 GI: No signs and/or symptoms were reported involving the gastrointestinal system. jb4 jb4 : 02:34 : No signs and/or symptoms were reported regarding the genitourinary system. jb4jb4 : 02:34 EENT: Ear canal clear on left ear and right ear jb4 jb4 : 02:34 Derm: Skin is intact, Skin is pink, warm \T\ dry. jb4 jb4 02:37 02:34 Musculoskeletal: Circulation, motion, and sensation intact. Range of motion: jb4 intact in all extremities, jb4
[2023-06-18 03:57] VITALS: BP 137/82; O2SAT 98
== END 2023-06-18 02:50 | disposition home or self-care (01) ==
LOC: ER 22:59
DX: J01.90 Acute sinusitis, unspecified (principal); H92.02 Otalgia, left ear; Z11.52 Encounter for screening for COVID-19
CPT/HCPCS: 0241U; 87070; 87081; 99283